=== PATIENT | female | born 1985 | race Caucasian/White ===

== ENCOUNTER 2023-07-19 12:55 | Outpatient (CLI) | payer OTHER, SELFPAY ==
--- NOTE | 2023-07-19 13:00 | US_ITS ---
Patient: OLGA MERCADO Facility:?[facility] RIS Patient ID:?[id number] Site Patient ID:?[id number]. Site :?1985 Study:?US-OB Pelvis TV dating/viability-07/19/2023 1:48:01 PM Ordering Physician:BONIFACIO Final Report: INDICATION: First trimester scan, establish dates. COMPARISON: None. TECHNIQUE: Real-time mejia-scale imaging of the pelvis was performed. FINDINGS: Sonographic imaging demonstrates a single living intrauterine gestation. The embryo demonstrates a regular cardiac rate measuring 157 beats per minute. The embryo`s crown-rump length measurement of 1.8 cm corresponds to a gestational age of 8 weeks 2 days with a sonographic due date of 02/26/2024. There is a normal-appearing yolk sac. There are no gross abnormalities noted within the embryo at this early state of development. The gestational sac has a normal appearance. There is a 1.1 x 0.7 x 0.8 cm perigestational hemorrhage. The amount of fluid within the sac appears appropriate for gestational age. The cervix is closed. The myometrium appears normal. The ovaries are of normal size. Corpus luteal cyst left ovary. There are no suspicious fluid collections noted in the cul-de-sac. IMPRESSION: Single living intrauterine with sonographic gestational age 8 weeks 2 days and sonographic due date of 02/26/2024. Right lower subchorionic hemorrhage measuring 1.1 x 0.7 x 0.8 cm. Dictated by Zhao Qureshi MD @ 07/20/2023 6:45:24 AM Signed by:?Zhao Qureshi MD @07/20/2023 6:45:24 AM (Electronic Signature)
== END 2023-07-19 12:56 | disposition home or self-care (01) ==
LOC: US 12:55
PROVIDERS: Visit Provider Advanced Practice Midwife
DX: Z34.91 Encounter for supervision of normal pregnancy, unspecified, first trimester (principal); O20.9 Hemorrhage in early pregnancy, unspecified; Z3A.08 8 weeks gestation of pregnancy
CPT/HCPCS: 76817; 84443; 86703; 86706; 86803; 86850; 86900; 86901; 87086; 87340

== ENCOUNTER 2023-07-19 15:04 | Outpatient (CLI) | payer OTHER, SELFPAY | END 2023-07-19 15:05 | disposition home or self-care (01) | LOC: NFLDREF 07-29 12:27 | PROVIDERS: Visit Provider Advanced Practice Midwife | DX: Z34.91 Encounter for supervision of normal pregnancy, unspecified, first trimester (principal) | CPT/HCPCS: 84443; 86592; 86703; 86704; 86706; 86762; 86787; 86803; 86850; 86900; 86901; 87086; 87340 ==

== ENCOUNTER 2023-09-09 14:27 | Outpatient (CLI) | payer OTHER, SELFPAY | END 2023-09-09 14:28 | disposition home or self-care (01) | LOC: NFLDREF 14:28 | PROVIDERS: Visit Provider Advanced Practice Midwife | DX: O09.522 Supervision of elderly multigravida, second trimester (principal); Z3A.16 16 weeks gestation of pregnancy | CPT/HCPCS: 81511 ==

== ENCOUNTER 2023-11-24 08:21 | Outpatient (CLI) | payer OTHER, SELFPAY ==
--- OUTSIDE RECORDS SUMMARY | 2023-11-24 08:23 | XMS_ITS | Encounter Summary ---
Author Organization [facility] Address [address] [place] [address]. [place] [address] Care Team Providers Care Automation Control Technician Name Role Phone No Ref-Primary, Physician Primary Care Provider Encounter Details Date Type Department Care Team (Late st Contact Info) Description 09/09/2023 Medical Correspondence [facility] Info Mgmt [facility] [address] [place] [address] Scan, Non-Provider Social History Tobacco Use Types Packs/Day Years Used Date Smoking Tobacco: Never Assessed Sex and Gender Information Value Date Recorded Sex Assigned at Not on file Gender Identity Not on file Sexual Orientation Not on file documented as of this encounter Plan of Treatment Not on file documented as of this encounter Visit Diagnoses Not on filedocumented in this encounter Care Teams Automation Control Technician Relationship Specialty Start Date End Date No Ref-Primary, Physician PCP - General 09/12/23 documented as of this encounter
--- OUTSIDE RECORDS SUMMARY | 2023-11-24 08:23 | XMS_ITS | Encounter Summary ---
Author Organization [facility] Address [address] [place] [address]. [place] [address] Care Team Providers Care Secretary Board Of Commissioners Name Role Phone No Ref-Primary, Physician Primary Care Provider Reason for Referral * Diagnostic Imaging Ultrasound (Routine) - Pending Review Specialty Diagnoses / Procedures Referred By Froy t Referred To Contact Radiology. Diagnoses Encounter for ultrasound to check growth Procedures [facility] US Comprehensive Single F/U Valeria Nagel MD [address] [place] [address] Referral ID Status Reason Start Date Expiration Date V isits Requested Visits Authorized [id number] Pending Review 09/28/2023 09/27/2024 1 1 Reason for Visit * Reason Comments Genetic Counseling AMA Ultrasound L2-AMA Encounter Details Date Type Department Care Team (Late st Contact Info) Description 09/28/2023 2:45 PM CDT Office Visit [facility] [place] [address] [place] [address] Sourav Pandey CNM [facility] [address] [place] [address] Valeria Nagel MD [address] [place] [address] Encounter for ultrasound to check growth (Primary Dx); Multigravida of advanced maternal age in second trimester Social History Tobacco Use Types Packs/Day Years Used Date Smoking Tobacco: Never Assessed Adolescent Education Answer Date Record ed Getting School Help Needed Not on file 09/21 Estimated Date of Delivery Comme nts Yes 02/22/2024 Based on last me nstrual period of 05/18/2023 Sex and Gender Information Value Date Recorded Sex Assigned at Not on file Gender Identity Not on file Sexual Orientation Not on file documented as of this encounter Progress Notes * Valeria Nagel MD - 09/28/2023 2:45 PM CDT The patient was seen for an ultrasound in the Maternal- Medicine Center at the [facility] today. For a detailed report of the ultrasound examination, please see the ultrasound report which can be found under the imaging tab. If you have questions regarding today's evaluation or if we can be of further service, please contact the Maternal- Medicine Center. Valeria Nagel MD Material Reclaimer, ASSISTANT MERCHANDISE MANAGER Maternal- Medicine [phone] (Pager) documented in this encounter Plan of Treatment Not on file documented as of this encounter Results * MFM US Comprehensive Single F/U (10/24/2023 2:32 PM CDT) Anatomical Region Laterality Modality Ultrasound 10/24/2023 1:59 PM CDT Impressions 10/24/2023 2:56 PM CDT IMPRESSION ----- 1. Ulloa at 22w 5d gestational age. 2. None of the anomalies commonly detected by ultrasound were evident in the limited anatomic survey as described above. 3. Growth parameters and estimated weight were consistent with gestational age predicted by assigned ABBEY (EFW 16%). 4. The amniotic fluid volume appeared normal. Narrative 10/24/2023 2:56 PM CDT ?Comp Follow Up ----- Pat. Name: CRISTY MERCADO ? Study Date: ??10/24/2023 1:59pm Pat. NO: ??[id number] ?Referring ??MD: SOURAV PANDEY Site: ??[facility] ? Take Up Supervisor: Xin Zarate RDMS : ??1985 ?Age: ?? 37 ----- INDICATION ----- Reevaluate growth, EFW 10th percentile on previous ultrasound METHOD ----- Transabdominal ultrasound examination. View: Sufficient ----- [place] . Number of fetuses: 1 DATING ----- ? Date ?Details ?Gest. age ?ABBEY LMP ?05/18/2023 ?Cycle: regular cycle ?22 w + 5 d ? 02/22/2024 Prior assessment ? 07/19/2023 ? GA: 8 w + 2 d ?22 w + 1 d ? 02/26/2024 U/S ? 10/24/2023 ? based upon AC, BPD, Femur, HC ?22 w + 0 d ? 02/27/2024 Assigned dating ?Dating performed on 09/28/2023, based on the LMP ?22 w + 5 d ? 02/22/2024 GENERAL EVALUATION ----- Cardiac activity present. FHR 140 bpm. movements present. Presentation cephalic. Placenta Posterior. Umbilical cord 3 vessel cord. Amniotic fluid Amount of AF: normal. MVP 5.6 cm. BIOMETRY ----- Main Biometry: BPD ?53.7 ?mm ? 22w 2d ?Hadlock OFMoi ?68.3 ?mm ? 21w 2d ?Nicolaides HC ?194.8 ?mm ?21w 5d ?Hadlock Cerebellum tr ?23.6 ? mm ?21w 6d ?Nicolaides AC ?170.8 ?mm ?22w 0d ?22% ?Hadlock Femur ?37.9 ? mm ?22w 1d ?Hadlock Weight Calculation: EFW ? 472 ? g ? 16% ?Hadlock EFW (lb,oz) ? 1 lb 1 ?oz EFW by ?Hadlock ([id number]) Head / Face / Neck Biometry: Cotton Stripper ? 5.2 ? mm CM ?3.7 ? mm ANATOMY ----- The following structures appear normal: Head / Neck ? Cranium. Head size. Head shape. Lateral ventricles. Midline falx. Cavum septi pellucidi. Cerebellum. Cisterna magna. Thalami. Face ? Lips. Profile. Nose. Heart / Thorax ?4-chamber view. RVOT view. LVOT view. 7-rovycm-gtdfcyq view. ? Diaphragm. Abdomen ? Stomach. Kidneys. Bladder. Spine ?Thoracic spine. Lumbar spine. Sacral spine. The following structures were documented previously: Spine ?Cervical spine. Gender: female. MATERNAL STRUCTURES ----- Cervix ?Suboptimal ? Cervical length 44.5 mm Right Ovary ?Not examined Left Ovary ?Not examined RECOMMENDATION ----- Thank-you for referring your patient for ultrasound assessment. I discussed the findings on today's ultrasound with the patient. There has been excellent interval growth since her last ultrasound. Given that growth is at the 16%ile today, recommend repeat growth assessment in 4 weeks. Patient prefers to have this ultrasound be scheduled with her primary provider, however, if this is not possible we are happy to schedule this with our office as well. Return to primary provider for continued care. If you have questions regarding today's evaluation or if we can be of further service, please contact the Maternal- Medicine Center. anomalies may be present but not detected I spent a total of 10 minutes on the date of this encounter including preparing to see the patient (reviewing medical records/tests), in direct gzpt-qb-csnv contact with the patient during her visit with the majority spent counseling and discussing the plan of care and documenting the visit in the electronic medical record. Please see note for details. Procedure Note Zelda Raman MD - 10/24/2023 Comp Follow Up ----- Pat. Name: CRISTY MERCADO Study Date: 10/24/2023 1:59pm Pat. NO: [id number] Referring MD: SOURAV PANDEY Site: [facility] Take Up Supervisor: Xin Zarate RDMS : 1985 Age: 37 ----- INDICATION ----- Reevaluate growth, EFW 10th percentile on previous ultrasound METHOD ----- Transabdominal ultrasound examination. View: Sufficient ----- [place] . Number of fetuses: 1 DATING ----- DateDetailsGest. age ABBEY LMP 05/18/2023ycle: regular cycle22 w + 5 d 02/22/2024 Prior assessment 07/19/2023 GA: 8 w +2 d22 w + 1 d 02/26/2024 U/S 10/24/2023ased upon AC, BPD, Femur, HC22 w + 0 d 02/27/2024 Assigned dating Dating performed on 09/28/2023, based onthe LMP 22 w +5 d 02/22/2024 GENERAL EVALUATION ----- Cardiac activity present. FHR 140 bpm. movements present. Presentation cephalic. Placenta Posterior. Umbilical cord 3 vessel cord. Amniotic fluid Amount of AF: normal. MVP 5.6 cm. BIOMETRY ----- Main Biometry: BPD 53.7 mm22w 2d Hadlock OFD 68.3 mm21w 2d Nicolaides HC 194.8 mm21w 5d Hadlock Cerebellum tr 23.6 mm21w 6d Nicolaides AC 170.8 mm22w 0d 22% Hadlock Femur 37.9 mm22w 1d Hadlock Weight Calculation: EFW 472 g16% Hadlock EFW (lb,oz) 1 lb 1 oz EFW by Hadlock ([id number]) Head / Face / Neck Biometry: Cotton Stripper 5.2 mm CM 3.7 mm ANATOMY ----- The following structures appear normal: Head / Neck Cranium. Head size. Head shape.Lateral ventricles. Midline falx. Cavum septi pellucidi. Cerebellum.Cisterna magna. Thalami. Face Lips. Profile. Nose. Heart / Thorax 4-chamber view. RVOT view. LVOT view.6-ixkbet-fuosuqu view. Diaphragm. Abdomen Stomach. Kidneys. Bladder. Spine Thoracic spine. Lumbar spine.Sacral spine. The following structures were documented previously: Spine Cervical spine. Gender: female. MATERNAL STRUCTURES ----- Cervix Suboptimal Cervical length 44.5 mm Right Ovary Not examined Left Ovary Not examined RECOMMENDATION ----- Thank-you for referring your patient for ultrasound assessment. Idiscussed the findings on today's ultrasound with the patient. There has been excellent interval growth since her last ultrasound. Giventhat growth is at the 16%ile today, recommend repeat growthassessment in 4 weeks. Patient prefers to have this ultrasound be scheduled with her primaryprovider, however, if this is not possible we are happy to schedule thiswith our office as well. Return to primary provider for continued care. If you have questions regarding today's evaluation or if we can be offurther service, please contact the Maternal- Medicine Center. anomalies may be present but not detected I spent a total of 10 minutes on the date of this encounter includingpreparing to see the patient (reviewing medical records/tests), in nbodkynjkf-gy-bvus contact with the patient during her visit with the majority spent counseling and discussingthe plan of care and documenting the visit in the electronic medicalrecord. Please see note for details. IMPRESSION ----- 1. Ulloa at 22w 5d gestational age. 2. None of the anomalies commonly detected by ultrasound were evident inthe limited anatomic survey as described above. 3. Growth parameters and estimated weight were consistent withgestational age predicted by assigned ABBEY (EFW 16%). 4. The amniotic fluid volume appeared normal. Valeria Nagel MD [facility] ORDERABLE S documented in this encounter Visit Diagnoses Diagnosis Encounter for ultrasound to check growth- Primary Multigravida of advanced maternal age in second trimester Encounter for ultrasound to check growth documented in this encounter Care Teams Secretary Board Of Commissioners Relationship Specialty Start Date End Date No Ref-Primary, Physician PCP - General 09/12/23 documented as of this encounter
--- OUTSIDE RECORDS SUMMARY | 2023-11-24 08:23 | XMS_ITS | Clinical Summary ---
Author Organization [facility] Address [address] [place] [address] Care Team Providers Care Slimer Name Role Phone No Ref-Primary, Physician Primary Care Provider Valeria Nagel MD Unavailable [phone] Encounters Date Type Department Care Team Description 10/24/2023 2:45 PM CDT Office Visit [facility]aternal Medicine [place] [address] [place] [address] Valeria Nagel MD Bohren, Jessica, CNM Burn, Martina, MD related condition, antepartum (Primary Dx); Encounter for ultrasound to check growth 10/24/2023 1:55 PM CDT - 10/24/2023 11:59 PM CDT Hospital Encounter [facility] [address] [place] [address] Valeria Nagel MD Burn, Martina, MD Encounter for ultrasound to check growth Discharge Disposition: Home or Self Care 10/24/2023 Travel 09/28/2023 2:45 PM CDT Office Visit [facility] Maternal Medicine [facility] [address] [place] [address] Sourav Pandey CNM Sabol, Bethany, MD Encounter for ultrasound to check growth (Primary Dx); Multigravida of advanced maternal age in second trimester 09/28/2023 1:30 PM CDT Office Visit [facility] Maternal Medicine [facility] [address] [place] [address] Sourav Pandey CNM Sabol, Bethany, MD Volesky, Mariah, GC Multigravida of advanced maternal age in second trimester (Primary Dx); related condition, antepartum 09/28/2023 1:25 PM CDT - 09/28/2023 11:59 PM CDT Hospital Encounter [facility] [place] [address] [facility] [address] [place] [address] Sourav Pandey CNM Sabol, Bethany, MD related condition, antepartum Discharge Disposition: Home or Self Care 09/28/2023 Travel 09/21/2023 PRE VISIT [facility] [place] [address] [facility] [address] [place] [id number] Elizabeth Harman RN Ultrasound (L2: AMA); Genetic Counseling (AMA) 09/12/2023 Transcribe Orders [facility] [place] [address] [facility] [address] [place] [address] Sourav Pandey CNM related condition, antepartum (Primary Dx) 09/09/2023 Medical Correspondence [facility] Info Mgmt [facility] [address] [place] [place] [address] Scan, Non-Provider from Last 3 Months Social History Tobacco Use Types Packs/Day Years [...] on file Sexual Orientation Not on file Plan of Treatment Health Maintenance Due Date Last Done Comments ADVANCE CARE PLANNING 1987 ANNUAL REVIEW OF HM ORDERS 1987 GLUCOSE 1987 HIV SCREENING 10/29/2002 HEPATITIS C SCREENING 10/29/2005 HEPATITIS B IMMUNIZATION (2 of 3 - 19+ 3-dose series) 08/26/2014 07/29/2014, 07/24/2014 COVID-19 Vaccine (3 season) 2023 03/24/2022, 03/03/2022 PHQ-2 (once per calendar year) 2023 MATERNAL SCREENING DISCUSSION 07/27/2023 YEARLY PREVENTIVE VISIT 09/23/2023 09/22/2022 OBGCT (OB) 11/02/2023 INFLUENZA VACCINE (#1) 2024 , 04/19/2022, 03/05/2020, Additional history exists RSV VACCINE ( & 60+) (1 - Risk 1-dose series) 01/08/2024 PAP 05/25/2026 05/25/2023 DTAP/TDAP/TD IMMUNIZATION (4 - Td or Tdap) 08/28/2030 08/28/2020, 12/17/2009, 09/01/1999 HPV IMMUNIZATION Completed 05/06/2011, , 07/17/2010 IPV IMMUNIZATION Aged Out No longer e ligible based on patient's age to complete this topic MENINGITIS IMMUNIZATION Aged Out No l onger eligible based on patient's age to complete this topic Pneumococcal Vaccine: Pediatrics (0 to 5 Years) and At-Risk Patients (6 to 64 Years) Aged Out No longer eligible based on patient's age to complete this topic RSV MONOCLONAL ANTIBODY Aged Out No l onger eligible based on patient's age to complete this topic Procedures Procedure Name Priority Date/Time Associated Diagnosis Comments [facility] US COMPREHENSIVE SINGLE F/U Routine 10/24/2023 2:32 PM CDT Encounter for ultrasound to check growth [facility] US COMPREHENSIVE SINGLE Routine 09/28/2023 3:02 PM CDT related condition, antepartum from Last 3 Months Results * [facility] US Comprehensive Single F/U (10/24/2023 2:32 PM CDT) Anatomical Region Laterality Modality Ultrasound 10/24/2023 1:59 PM CDT Impressions 10/24/2023 2:56 PM CDT IMPRESSION ----- 1. Ulola at 22w 5d gestational age. 2. None [...] ? Study Date: ??10/24/2023 1:59pm Pat. NO: ??[id number] ?Referring ??MD: SOURAV PANDEY Site: ??[facility] ? [address] Supervisor: Xin Zarate RDMS : ??1985 ?Age: [...] BPD ?53.7 ?mm ? 22w 2d ?Hadlock OFD ?68.3 ?mm ? 21w 2d ?Nicolaides HC ?194.8 ?mm ?21w 5d ?Hadlock Cerebellum tr ?23.6 ? mm ?21w 6d ?Nicolaides AC ?170.8 ?mm ?22w 0d ?22% ?Hadlock Femur ?37.9 ? mm ?22w 1d ?Hadlock Weight Calculation: EFW ? 472 ? g ? 16% ?Hadlock EFW (lb,oz) ? 1 lb 1 ?oz EFW by ?Hadlock ([id number]) Head / Face / Neck Biometry: Aviation Medicine Specialist ? 5.2 ? mm CM ?3.7 ? mm ANATOMY ----- The following structures appear normal: Head / Neck ? Cranium. Head size. Head shape. Lateral ventricles. Midline falx. Cavum septi pellucidi. Cerebellum. Cisterna magna. Thalami. Face ? Lips. Profile. Nose. Heart / Thorax ?4-chamber view. RVOT view. LVOT view. 4-irrxrg-nkgctwc view. ? Diaphragm. Abdomen ? Stomach. Kidneys. [...] the patient (reviewing medical records/tests), in direct ihza-zx-ihyg contact with the patient during her visit with the majority spent counseling and discussing the plan of care and documenting the visit in the electronic medical record. Please see note for details. Procedure Note Zelda Raman MD - 10/24/2023 Comp Follow Up ----- Pat. Name: CRISTY MERCADO Study Date: 10/24/2023 1:59pm Pat. NO: [id number] Referring MD: SOURAV PANDEY Site: [facility] [address] Supervisor: Xin Zarate RDMS : 1985 Age: 37 ----- INDICATION ----- Reevaluate growth, EFW 10th percentile on previous ultrasound METHOD ----- Transabdominal ultrasound examination. View: Sufficient ----- [place] . Number of fetuses: 1 DATING ----- DateDetailsGest. age ABBEY LMP 4Cycle: regular cycle22 w + 5 d 02/22/2024 Prior assessment 07/19/2023 GA: 8 w +2 d22 w + 1 d 02/26/2024 U/S 4based upon AC, BPD, Femur, HC22 w + [...] 1 lb 1 oz EFW by Hadlock ([id number]) Head / Face / Neck Biometry: Aviation Medicine Specialist 5.2 mm CM 3.7 mm ANATOMY ----- The following structures appear normal: Head / Neck Cranium. Head size. Head shape.Lateral ventricles. Midline falx. Cavum septi pellucidi. Cerebellum.Cisterna magna. Thalami. Face Lips. Profile. Nose. Heart / Thorax 4-chamber view. RVOT view. LVOT view.6-zsuaam-fisffro view. Diaphragm. Abdomen Stomach. Kidneys. Bladder. Spine [...] see the patient (reviewing medical records/tests), in sozcbdesgl-xd-yvup contact with the patient during her visit [...] fluid volume appeared normal. Valeria Nagel MD [facility] US ORDERABLE S [facility] US Comprehensive Single (09/28/2023 3:02 PM CDT) Anatomical Region Laterality Modality Ultrasound 09/28/2023 1:56 PM CDT Impressions 09/28/2023 3:51 PM CDT IMPRESSION ----- 1. Ulloa at 19w 0d gestational age. 2. No anomalies commonly detected by ultrasound were identified in the detailed anatomic survey within the limits of ultrasound. 3. Growth parameters and estimated weight were at the 10th% for gestational age predicted by assigned ABBEY. 4. The amniotic fluid volume appeared normal. 5. On transabdominal imaging the cervix appeared long and closed. Narrative 09/28/2023 3:51 PM CDT ?Comprehensive ----- Pat. Name: CRISTY MERCADO ? Study Date: ??09/28/2023 1:56pm Pat. NO: ??[id number] ?Referring ??MD: SOURAV PANDEY Site: ??[facility] ? Street Supervisor: Irma Scott [facility] : ??1985 ?Age: ?? 37 ----- INDICATION ----- Advanced Maternal Age METHOD ----- Transabdominal ultrasound examination. View: Sufficient ----- [place] . Number of fetuses: 1 DATING ----- ? Date ?Details ?Gest. age ?ABBEY LMP ?05/18/2023 ?Cycle: regular cycle ?19 w + 0 d ? 02/22/2024 Prior assessment ? 07/19/2023 ? GA: 8 w + 2 d ?18 w + 3 d ? 02/26/2024 U/S ? 09/28/2023 ? based upon AC, BPD, Femur, HC ?18 w + 2 d ? 02/27/2024 Assigned dating ?Dating performed on 09/28/2023, based on the LMP ?19 w + 0 d ? 02/22/2024 GENERAL EVALUATION ----- Cardiac activity present. FHR 140 bpm. movements present. Presentation cephalic. Placenta posterior, no previa > 2 cm from internal os . Umbilical cord Cord vessels: 3 vessel cord. Insertion site: normal insertion. Amniotic fluid Amount of AF: normal. MVP 4.6 cm. BIOMETRY ----- Main Biometry: BPD ?40.5 ?mm ? 18w 2d ?Yandel NAQVI ?55.4 ?mm ? 18w 2d ?Nicolaides HC ?153.6 ?mm ?18w 2d ?Hadlock Cerebellum tr ?19.2 ? mm ?18w 4d ?Nicolaides AC ?125.4 ?mm ?18w 1d ?20% ?Hadlock Femur ?26.6 ? mm ?18w 1d ?Hadlock Humerus ?25.3 ?mm ? 18w 0d ?Katelin Weight Calculation: EFW ? 226 ? g ? 10% ?Hadlock EFW (lb,oz) ? 0 lb 8 ?oz EFW by ?Hadlock ([id number]-FL) Head / Face / Neck Biometry: Aviation Medicine Specialist ? 5.1 ? mm CM ?3.3 ? mm Nasal bone ? 6.2 ? mm Nuchal fold ? 3.0 ? mm ANATOMY ----- The following structures appear normal: Head / Neck ? Cranium. Head size. Head shape. Lateral ventricles. Choroid plexus. Midline falx. Cavum septi pellucidi. Cerebellum. Cisterna magna. ? Parenchyma. Thalami. Vermis. ? Neck. Nuchal fold. Face ? Lips. Profile. Nose. Maxilla. Mandible. Orbits. Lens. Heart / Thorax ?4-chamber view. RVOT view. LVOT view. Situs. Aortic arch view. Bicaval view. Ductal arch view. Superior vena cava. Inferior vena cava. 3-vessel ? view. 4-iabmht-bfylqmd view. Cardiac position. Cardiac size. Cardiac rhythm. ? Right lung. Left lung. Diaphragm. Abdomen ? Abdominal wall. Cord insertion. Stomach. Kidneys. Bladder. Liver. Bowel. Genitals. Spine ?Cervical spine. Thoracic spine. Lumbar spine. Sacral spine. Extremities / Skeleton ?Right arm. Right hand. Left arm. Left hand. Right leg. Right foot. Left leg. Left foot. Gender: female. MATERNAL STRUCTURES ----- Cervix ?Visualized ? Appearance: Appears Closed ? Approach - Transabdominal: Cervical length 46.3 mm Right Ovary ?Visualized Left Ovary ?Visualized RECOMMENDATION ----- Thank-you for referring your patient for a comprehensive ultrasound. I discussed the findings on today's ultrasound with the patient. We reviewed that we consider a to be affected by growth restriction (FGR) when the overall EFW is <10th% or if the abdominal circumference (AC) is < 10th% as they have been found to be equally predictive of SGA. We reviewed that with an EFW at the 10th% is still technically normal growth but is a reason for repeat evaluation to ensure growth continues to be normal. We discussed the potential etiologies of FGR including incorrect dating, constitutional, infectious etiologies (specifically CMV), genetic and structural abnormalities as well as placental and umbilical cord abnormalities. Her dating was reviewed (sure LMP c/w 8 week US). She had low risk cell free DNA for genetic screening. She is otherwise healthy and has no significant medical problems. I reviewed the limitations of ultrasound both in detecting aneuploidy and structural abnormalities. Ultrasound can routinely detect 80-90% of structural abnormalities. Follow-up evaluation of growth has been scheduled with our office in 3 weeks. Return to primary provider for continued care. If you have questions regarding today's evaluation or if we can be of further service, please contact the [facility]. anomalies may be present but not detected I spent a total of 15 minutes on the date of this encounter including preparing to see the patient (reviewing medical records/tests), counseling and discussing the plan of care, documenting the visit in the electronic medical record, and communicating with other health critical care nurse specialist and/or care coordination. Please see note for details. Procedure Note Valeria Nagel MD - 09/28/2023 Comprehensive ----- Pat. Name: CRISTY MERCADO Study Date: 09/28/2023 1:56pm Pat. NO: [id number] Referring MD: SOURAV PANDEY Site: [facility] [address] Supervisor: Irma Scott RDMS : 1985 Age: 37 ----- INDICATION ----- Advanced Maternal Age METHOD ----- Transabdominal ultrasound examination. View: Sufficient ----- [place] . Number of fetuses: 1 DATING ----- DateDetailsGest. age ABBEY LMP 05/18/2023ycle: regular cycle19 w + 0 d 02/22/2024 Prior assessment 07/19/2023 GA: 8 w +2 d18 w + 3 d 02/26/2024 U/S 09/28/2023ased upon AC, BPD, Femur, HC18 w + 2 d 02/27/2024 Assigned dating Dating performed on 09/28/2023, based onthe LMP 19 w +0 d 02/22/2024 GENERAL EVALUATION ----- Cardiac activity present. FHR 140 bpm. movements present. Presentation cephalic. Placenta posterior, no previa > 2 cm from internal os . Umbilical cord Cord vessels: 3 vessel cord. Insertion site: normalinsertion. Amniotic fluid Amount of AF: normal. MVP 4.6 cm. BIOMETRY ----- Main Biometry: BPD 40.5 mm18w 2d Hadlock OFD 55.4 mm18w 2d Nicolaides HC 153.6 mm18w 2d Hadlock Cerebellum tr 19.2 mm18w 4d Nicolaides AC 125.4 mm18w 1d 20% Hadlock Femur 26.6 mm18w 1d Hadlock Humerus 25.3 mm18w 0d Katelin Weight Calculation: EFW 226 g10% Hadlock EFW (lb,oz) 0 lb 8 oz EFW by Hadlock ([id number]-FL) Head / Face / Neck Biometry: Aviation Medicine Specialist 5.1 mm CM 3.3 mm Nasal bone 6.2 mm Nuchal fold 3.0 mm ANATOMY ----- The following structures appear normal: Head / Neck Cranium. Head size. Head shape.Lateral ventricles. Choroid plexus. Midline falx. Cavum septi pellucidi.Cerebellum. Cisterna magna. Parenchyma. Thalami. Vermis. Neck. Nuchal fold. Face Lips. Profile. Nose. Maxilla.Mandible. Orbits. Lens. Heart / Thorax 4-chamber view. RVOT view. LVOT view.Situs. Aortic arch view. Bicaval view. Ductal arch view. Superior venacava. Inferior vena cava. 3-vessel view. 7-vvdhjl-wdkxapj view.Cardiac position. Cardiac size. Cardiac rhythm. Right lung. Left lung.Diaphragm. Abdomen Abdominal wall. Cord insertion.Stomach. Kidneys. Bladder. Liver. Bowel. Genitals. Spine Cervical spine. Thoracic spine.Lumbar spine. Sacral spine. Extremities / Skeleton Right arm. Right hand. Left arm. [place]. Right leg. Right foot. Left leg. Left foot. Gender: female. MATERNAL STRUCTURES ----- Cervix Visualized Appearance: Appears Closed Approach - Transabdominal:Cervical length 46.3 mm Right Ovary Visualized Left Ovary Visualized RECOMMENDATION ----- Thank-you for referring your patient for a comprehensive ultrasound. I discussed the findings on today's ultrasound with the patient. Wereviewed that we consider a to be affected by growthrestriction (FGR) when the overall EFW is <10th% or if the abdominal circumference (AC) is < 10th% as theyhave been found to be equally predictive of SGA. We reviewed that with anEFW at the 10th% is still technically normal growth but is a reason for repeat evaluation toensure growth continues to be normal. We discussed the potentialetiologies of FGR including incorrect dating, constitutional, infectious etiologies (specificallyCMV), genetic and structural abnormalities as well as placental andumbilical cord abnormalities. Her dating was reviewed (sure LMP c/w 8 week US). She had low risk cell freefetal DNA for genetic screening. She is otherwise healthy and has nosignificant medical problems. I reviewed the limitations of ultrasound both in detecting aneuploidy andstructural abnormalities. Ultrasound can routinely detect 80-90% ofstructural abnormalities. Follow-up evaluation of growth has been scheduled with our office in3 weeks. Return to primary provider for continued care. If you have questions regarding today's evaluation or if we can be offurther service, please contact the [facility]. anomalies may be present but not detected I spent a total of 15 minutes on the date of this encounter includingpreparing to see the patient (reviewing medical records/tests), counselingand discussing the plan of care, documenting the visit in the electronic medical record, andcommunicating with other health critical care nurse specialist and/or carecoordination. Please see note for details. IMPRESSION ----- 1. [place] at 19w 0d gestational age. 2. No anomalies commonly detected by ultrasound were identified inthe detailed anatomic survey within the limits of prenatalultrasound. 3. Growth parameters and estimated weight were at the 10th% forgestational age predicted by assigned ABBEY. 4. The amniotic fluid volume appeared normal. 5. On transabdominal imaging the cervix appeared long and closed. Sourav Pandey CN IMG [facility] US ORDERABLE S from Last 3 Months Care Teams [place]er Relationship Specialty Start Date End Date No Ref-Primary, Physician PCP - General 09/12/23 Valeria Nagel MD [address] [place] [address] Assigned OBGYN Provider 10/30/23
--- OUTSIDE RECORDS SUMMARY | 2023-11-24 08:23 | XMS_ITS | Encounter Summary ---
Author Organization [facility] Address [address] [place] [address] Care Team Providers Care Body Former Name Role Phone No Ref-Primary, Physician Primary Care Provider Encounter Details Date Type Department Care Team (Latest Contact Info) Description 10/24/2023 Travel Social History Tobacco Use Types Packs/Day Years [...] on filedocumented in this encounter Care Teams Body Former Relationship Specialty Start Date End Date No Ref-Primary, Physician PCP - General 09/12/23 documented as of this encounter
--- OUTSIDE RECORDS SUMMARY | 2023-11-24 08:23 | XMS_ITS | Encounter Summary ---
Author Organization [place] Address [address] [place] [address] Care Team Providers Care Patrol Man Name Role Phone No Ref-Primary, Physician Primary Care Provider Reason for Visit * Reason Comments Genetic Counseling * Consultation (Routine: Next available opening) - Pending Review Specialty Diagnoses / Procedures Referred By Froy godwin Referred To Contact Diagnoses related condition, antepartum Karen Pandey CNM [facility] [address] [place] [address] Referral ID Status Reason Start Date Expiration Date V isits Requested Visits Authorized [id number] Pending Review 09/12/2023 09/11/2024 1 1 Encounter Details Date Type Department Care Team (Late st Contact Info) Description 09/28/2023 1:30 PM CDT Office Visit [facility] [place] [address] [place] [phone] Karen Pandey [facility] [address] [place] [address] Valeria Nagel MD [address] [place] [address] Jana Saldaña GC MATERNAL MEDICINE [address] [place] [id number] Multigravida of advanced maternal age in second trimester (Primary Dx); related condition, antepartum Social History Tobacco Use Types Packs/Day Years [...] as of this encounter Progress Notes * Jana Saldaña GC - 09/28/2023 1:30 PM CDT [facility] Genetic Counseling Consult Patient: Cristy Gutierrezeugenio Preferred Name: Cristy Date of : 1985 Date of Service: 09/28/23 Cristy was seen at the [facility] for genetic consultation. The indication for genetic counseling is advanced maternal age. The patient was accompanied to this visit by their partner, Kimo. The session was conducted in Bulgarian. IMPRESSION/ PLAN 1. Cristy had genetic screening earlier in this . Their non-invasive test was screen negative or low risk for screened conditions 2. During today's [facility] visit, Cristy had a genetic counseling session only. Cristy has already had genetic testing in this . Additional screening and diagnostic testing was discussed for the gestational age and declined. 3. Since the patient chose aneuploidy screening via NIPT, quad screen is NOT recommended in the second trimester. If the patient desires screening for open neural tube defects, maternal serum AFP only is recommended, ideally between 16- 18 weeks gestation. 4. Cristy had a level II comprehensive anatomy ultrasound today. Please see the ultrasound report for further details. 5. Further recommendation include a follow-up ultrasound with [facility]. The upcoming ultrasound has beenscheduled for 10/24/2023. HISTORY /Parity: Cristy's history is significant for: carried to term with their healthy, almost 3 year old daughter CURRENT Current Age: [age] year old Age at Delivery: 38 year old ABBEY: 02/22/2024, by Last Menstrual Period Gestational Age: 19w0d This is a single gestation. This was conceived spontaneously. MEDICAL HISTORY Cristy???s reported medical history is not expected to impact management or risks to fetaldevelopment. FAMILY HISTORY A three-generation pedigree was obtained today and is scanned under the Media tab in [employer]. The family history was reported by Cristy and their partner. The following significant findings were reported today: Cristy's partner, Kimo, is currently 39 years old and healthy. Cristy reports that she had two paternal aunts who from myotonic dystrophy (type unknown). Cristy reports that symptom onset was roughly in their 50s. Cristy knows that a daughter of one of the affected aunts underwent genetic testing for this condition, however, Cristy does not know what the result was. Cristy is not sure if either of her paternal grandparents expressed symptoms of myotonic dystrophy before passing. Cristy's father at age 50 from AIDS, therefore it is possible he also had the condition, but before symptoms onset. Myotonic dystrophy is an inherited condition characterized by progressive muscular weakness. Typically people with the condition have difficulties with myotonia (prolonges muscle contraction) and relaxing their muscles. Other features include cataracts and cardiac conduction defects. There are two types of myotonic dystrophy. Type 1 is more significant and weakness is associated with distal muscles while type 2 is more mild and associated with proximal muscles. The two types are caused by mutations in different genes as well. Both condition are inherited in an autosomal dominant pattern, however, for type 1 anticipation occurs which means due to an expansion mutation, each generation of affected individuals is affected at an earlier age, especially when an affected mother passes it to their child. For example, a grandmother can have onset in the 60s, her daughter in her 30s, and her granddaughter congenitally at . The same anticipation is not seen when the mutation is inherited from a father. Cristy was encouraged to follow-up with her cousin who did genetic testing for the condition, as that genetic testing report (positive or negative) could be helpful in guiding testing for[place], if she chooses. We discussed that some individuals would want to know their risk of developing myotonic dystrophy in their lifetime, especially if age of onset could potentially be earlier fortheir children. Other people would prefer not to test and wait to see if symptoms onset. I discussed with Cristy and Kimo that if Cristy would want to pursue testing, a copy of her cousin's genetic testing report would be helpful in guiding that testing, and that I would be able to assist with the referral to adult genetics for that testing. Cristy was provided my contact information and encouraged to contact me with questions or if she would like a referral placed. Kimo reports that his mother was diagnosed with tyroid cancer (type unknown) in her mid 30s and breast cancer at age 50s. Kimo's maternal aunt has a history of cancer (type unknown), however, it was later onset. We briefly discussed the family history of cancer. Cancer most often occurs by chance, however some families seem to develop cancer more frequently than expected. Everyone has a risk to develop cancer, but individuals may be at an increased risk to develop cancer based on their family history. We discussed that certain types of early onset thyroid cancer or breast cancer under the ageof 50 can be associated with inherited cancer predisposition syndromes. Genetic counseling is available for cancer syndromes. Cancer family history, even without genetic testing, can change cancer screening recommendations for family members and aid in insurance coverage for access to them as well.The most informative individuals to complete cancer genetic counseling and genetic testing are those with a personal history of cancer or those closely related to the affected individuals. We reviewed that if the family wants more information they can contact the [facility] Management Program ( ). Physicians can also make referrals at [email or web address] or, if within the [facility] system, through [facility] referral for Cancer Risk Mgmt/Cancer Genetic Counseling. Information regarding the [facility] Cancer RiskManagement program was provided to Kimo to share with his mother. We discussed that his mother would be the ideal person for cancer genetic counseling/testing and if there is a genetic predispositionof cancer discovered, family members could pursue testing, as it could change cancer screening recommendations for them. Otherwise, the reported family history is unremarkable for multiple miscarriages, stillbirths, defects, intellectual disabilities, known genetic conditions, and consanguinity. RISK ASSESSMENT FOR INHERITED CONDITIONS AND CARRIER SCREENING OPTIONS Expanded carrier screening is available to screen for autosomal recessive conditions and X-linked conditions in a large list of genes. Carrier screening does not test the but gives a risk assessment for the and future pregnancies to have the condition. Expanded carrier screeningis designed to identify carrier status for conditions that are primarily childhood or adolescent onset. Expanded carrier screening does not evaluate for adult-onset conditions such as hereditary cancer syndromes, dementia/ Alzheimer's disease, or cardiovascular disease risk factors. Additionally, expanded carrier screening is not comprehensive for all known genetic diseases or inherited conditions. Carrier screening does not test for all genetic and health conditions or risk factors. Autosomal recessive conditions happen when a mutation has been inherited from the egg and sperm andinclude conditions like cystic fibrosis, thalassemia, hearing loss, spinal muscular atrophy, and more. We reviewed that when both biological parents carry a harmful genetic change in a gene associated with autosomal recessive inheritance, each of their pregnancies has a 1 in 4 (25%) chance to be affected by that condition. X-linked conditions happen when a mutation has been inherited from the eggand include conditions like fragile X syndrome.With x-linked conditions, the specific risk generally depends on the chromosomal sex of the fetus, with XY individuals (generally male) being most severely affected. [place] screening was reviewed. About [place] Screening The patient does have a family family of a genetic condition. Cristy reports that she had two paternal aunts, both of which from myotonic dystrophy (type unknown). Please see the family history section for more details discussed on this topic. The patient has not had carrier screening previously. The patient declined the carrier screening options. They are aware the option will remain, and theycan contact us if they would like to pursue screening. See below for the more detailed information we dicussed. Carrier screening does not test the but gives a risk assessment for the and future pregnancies to have the condition There are different size panels or list of conditions for carrier screening. Some conditions cause health problems for carriers. We discussed that in the event of an incidentalfinding, further evaluation regarding screening or further testing may be recommended. Carrier screening does not test for all genetic and health conditions or risk factors The results typically take 2-3 weeks. If an individual is a carrier, family members could be as well. RISK ASSESSMENT FOR CHROMOSOME CONDITIONS We explained that the risk for chromosome abnormalities increases with maternal age. We discussed specific features of common chromosome abnormalities, including trisomy 21 (Down syndrome), trisomy 13, trisomy 18, and sex chromosome trisomies. At age 38 at delivery, the risk to have a baby with Down syndrome is 1 in 294. At age 38 at delivery, the risk to have a baby with any chromosome abnormality is 1 in 163. Cristy had genetic screening earlier in this . Their non-invasive test was screen negative or low risk for screened conditions Non-invasive testing (NIPT) results Maternal plasma cell-free DNA testing Screens for trisomy 21, trisomy 13, trisomy 18, and sex chromosome aneuploidy Cristy had a NIPT test earlier in ; we reviewed the results today, which are low risk. The NIPT did include sex chromosome aneuploidies and the result was low risk. The predicted sex is XX, which is typically female. Given the accuracy of this test, these results greatly decrease the chance for certain chromosome abnormalities We discussed the limitations of normal NIPT results GENETIC TESTING OPTIONS Genetic testing during a includes screening and diagnostic procedures. Screening tests are non-invasive which means no risk to the and includes ultrasounds and blood work. The benefits and limitations of screening were reviewed. Screening tests provide a risk assessment (chance) specific to the for certain chromosome abnormalities but cannot definitively diagnose or exclude a chromosome abnormality. Follow-up genetic counseling and consideration of diagnostic testing is recommended with any abnormal screening result. Diagnostic testing during a is more certain and can test for more conditions. However, the tests do have a risk of miscarriage that requires careful consideration. These tests can detect chromosome ab normalities with greater than 99% certainty. Results can be compromised by maternal cell contamination or mosaicism and are limited by the resolution of current genetic testing technology. There is no screening or diagnostic test that detects all forms of defects or intellectual disability. We discussed the following screening options: Non-invasive testing (NIPT) Also called cell-free DNA screening because it detects chromosomes from the placenta in the person's blood Can be done any time after 10 weeks gestation Standard recommendation for NIPT screens for trisomy 21, trisomy 18, trisomy 13, with the option ofadding sex chromosome aneuploidies, without or without predicted sex Cannot screen for open neural tube defects, maternal serum AFP after 15 weeks is recommended New NIPT options include screening for other trisomies, microdeletion syndromes, and in some cases blood antigens. Guidelines do not recommend these conditions are included in standard screening. These options have limitations and should be discussed with a genetic counselor. However, current (2022) ACMG guidelines do recommend that screening for one microdeletion syndrome,called 22q11.2 deletion syndrome be offered to all patients. 22q11.2 deletion syndrome hasan estimated prevalence of 1 in 990 to 1 in 2148 (0.05-0.1%). Risk is not thought to increase with maternal age. Clinical features are variable but include congenital heart defects, cleft palate, developmental delays, immune system deficiencies, and hearing loss. Approximately 90% of cases are de lydia (a sporadic new change in a ). Cell-free DNA screening for 22q11.2 deletion syndrome isavailable with the inclusion of other microdeletion syndromes. There is less data about the performance of cell-free DNA screening for more rare microdeletions and the chance for false positives or negative may be increased. We discussed the limitations of cell-free DNA screening in detecting microdeletions and the possiblity of false positives and false negatives. Microdeletion screening was notincluded in the NIPT ordered by Cristy's primary OB provider. We discussed the following ultrasound options: Comprehensive level II ultrasound ( Anatomy Ultrasound) Ultrasound done between 18-20 weeks gestation Screens for major defects and markers for aneuploidy (like trisomy 21 and trisomy 18) Includes looking at the fetus/baby's growth, heart, organs (stomach, kidneys), placenta, and amniotic fluid We discussed the following diagnostic options: Amniocentesis Invasive diagnostic procedure done after 15 weeks gestation The procedure collects a small sample of amniotic fluid for the purpose of chromosomal testing and/or other genetic testing Diagnostic result; more than 99% sensitivity for chromosome abnormalities Testing for AFP in the amniotic fluid can test for open neural tube defects It was a pleasure to be involved with Cristy???s care. Hejb-hc-brct time of the meeting was 30 minutes. Jana Saladña GC, MS, [facility] Board Certified and [place] Licensed Genetic Counselor [facility] Office: [phone] [facility]: [phone] [facility] documented in this encounter Plan of Treatment Not on file documented as of this encounter Visit Diagnoses Diagnosis Multigravida of advanced maternal age in second trimester- Primary related condition, antepartum documented in this encounter Care Teams Patrol Man Relationship Specialty Start Date End Date No Ref-Primary, Physician PCP - General 09/12/23 documented as of this encounter
--- OUTSIDE RECORDS SUMMARY | 2023-11-24 08:23 | XMS_ITS | Encounter Summary ---
Author Organization [place] Address [address] [place] [address] Care Team Providers Care Wire Basket Maker Name Role Phone No Ref-Primary, Physician Primary Care Provider Reason for Referral * Diagnostic Imaging Ultrasound (Routine) - Pending Review Specialty Diagnoses / Procedures Referred By Froy t Referred To Contact Radiology. Diagnoses Encounter for ultrasound to check growth Procedures [facility] US Comprehensive Single F/U Valeria Nagel MD [address] [facility] [address] [place] [address] Referral ID Status Reason Start Date Expiration Date V isits Requested Visits Authorized [id number] Pending Review 09/28/2023 09/27/2024 1 1 Reason for Visit * Diagnostic Imaging Ultrasound (Routine) - Pending Review Specialty Diagnoses / Procedures Referred By Froy godwin Referred To Contact Radiology. Diagnoses Encounter for ultrasound to check growth Procedures [facility] US Comprehensive Single F/U Valeria Nagel MD [address] [place] [address] Referral ID Status Reason Start Date Expiration Date V isits Requested Visits Authorized [id number] Pending Review 09/28/2023 09/27/2024 1 1 Encounter Details Date Type Department Care Team (Latest Contact Info) Description 10/24/2023 1:55 PM CDT - 10/24/2023 11:59 PM CDT Hospital Encounter [facility] [address] [place] [address] Valeria Nagel MD [address] [place] [address] Zelda Raman MD [address] [place] [address] Encounter for ultrasound to check growth Discharge Disposition: Home or Self Care Social History Tobacco Use Types Packs/Day Years [...] on file documented as of this encounter Procedures Procedure Name Priority Date/Time Associated Diagnosis Comments [facility] US COMPREHENSIVE SINGLE F/U Routine 10/24/2023 2:32 PM CDT Encounter for ultrasound to check growth documented in this encounter Results * [facility] US Comprehensive Single F/U (10/24/2023 2:32 [...] ? Study Date: ??10/24/2023 1:59pm Pat. NO: ??[id number] ?Referring ??MD: SOURAV SIMMONS Site: ??[facility] ? Ad Operations Associate: Xin Zarate RDMS : ??1985 ?Age: ?? [...] Biometry: BPD ?53.7 ?mm ? 22w 2d ?Yandel NAQVI ?68.3 ?mm ? 21w 2d ?Nicolaides HC ?194.8 ?mm ?21w 5d ?Hadlock Cerebellum tr ?23.6 ? mm ?21w 6d ?Nicolaides AC ?170.8 ?mm ?22w 0d ?22% ?Hadlock Femur ?37.9 ? mm ?22w 1d ?Hadlock Weight Calculation: EFW ? 472 ? g ? 16% ?Hadlock EFW (lb,oz) ? 1 lb 1 ?oz EFW by ?Hadlock ([id number]) Head / Face / Neck Biometry: Garment Looper ? 5.2 ? mm CM ?3.7 ? mm ANATOMY ----- The following structures appear normal: Head / Neck ? Cranium. Head size. Head shape. Lateral ventricles. Midline falx. Cavum septi pellucidi. Cerebellum. Cisterna magna. Thalami. Face ? Lips. Profile. Nose. Heart / Thorax ?4-chamber view. RVOT view. LVOT view. 5-ndolow-bsodhce view. ? Diaphragm. Abdomen ? Stomach. Kidneys. [...] the patient (reviewing medical records/tests), in direct kcsq-nd-fmgh contact with the patient during her visit with the majority spent counseling and discussing the plan of care and documenting the visit in the electronic medical record. Please see note for details. Procedure Note Zelda Raman MD - 10/24/2023 Comp Follow Up ----- Pat. Name: CRISTY MERCADO Study Date: 10/24/2023 1:59pm Pat. NO: [id number] Referring MD: SOURAV SIMMONS Site: [facility] Ad Operations Associate: Xin Zarate RDMS : 1985 Age: 37 [...] 1 lb 1 oz EFW by Hadlock ([id number]) Head / Face / Neck Biometry: Garment Looper 5.2 mm CM 3.7 mm ANATOMY ----- The following structures appear normal: Head / Neck Cranium. Head size. Head shape.Lateral ventricles. Midline falx. Cavum septi pellucidi. Cerebellum.Cisterna magna. Thalami. Face Lips. Profile. Nose. Heart / Thorax 4-chamber view. RVOT view. LVOT view.9-kevcxc-gajsmcy view. Diaphragm. Abdomen Stomach. Kidneys. Bladder. Spine [...] see the patient (reviewing medical records/tests), in gsftzkcfls-yk-lrdv contact with the patient during her visit [...] fluid volume appeared normal. Valeria Nagel MD IM [facility] US ORDERABLE S documented in this encounter Visit Diagnoses Diagnosis Encounter for ultrasound to check growth documented in this encounter Care Teams Wire Basket Maker Relationship Specialty Start Date End Date No Ref-Primary, Physician PCP - General 09/12/23 documented as of this encounter
--- OUTSIDE RECORDS SUMMARY | 2023-11-24 08:23 | XMS_ITS | Encounter Summary ---
Author Organization [place] Address [address] [place] [address] Care Team Providers Care Electronic Imaging System Operator Name Role Phone No Ref-Primary, Physician Primary Care Provider Reason for Referral * Diagnostic Imaging Ultrasound (Routine) - Pending Review Specialty Diagnoses / Procedures Referred By Kathrynac t Referred To Contact Radiology. Diagnoses related condition, antepartum Procedures [facility] US Comprehensive Single Sourav Pandey CNM [facility] [address] [place] [address] Referral ID Status Reason Start Date Expiration Date V isits Requested Visits Authorized [id number] Pending Review 09/12/2023 09/11/2024 1 1 Reason for Visit * Diagnostic Imaging Ultrasound (Routine) - Pending Review Specialty Diagnoses / Procedures Referred By Froy godwin Referred To Contact Radiology. Diagnoses related condition, antepartum Procedures [facility] US Comprehensive Single Sourav Pandey CNM [facility] [address] [place] [address] Referral ID Status Reason Start Date Expiration Date V isits Requested Visits Authorized [id number] Pending Review 09/12/2023 09/11/2024 1 1 Encounter Details Date Type Department Care Team (Latest Contact Info) Description 09/28/2023 1:25 PM CDT - 09/28/2023 11:59 PM CDT Hospital Encounter [facility] Maternal Medicine [facility] [address] [place] [address] Sourav Pandey CNM [facility] [address] [place] [address] Valeria Nagel MD [address] [place] [address] related condition, antepartum Discharge Disposition: Home or Self Care Social [...] Procedure Name Priority Date/Time Associated Diagnosis Comments [facility] US COMPREHENSIVE SINGLE Routine 09/28/2023 3:02 PM CDT related condition, antepartum documented in this encounter Results * [facility] US Comprehensive Single (09/28/2023 3:02 PM CDT) [...] ? Study Date: ??09/28/2023 1:56pm Pat. NO: ??[id number] ?Referring ??MD: SOURAV PANDEY Site: ??[facility] ? Parts Identifier: Irma Scott RDMS : ??1985 ?Age: ?? 37 ----- [...] 0 lb 8 ?oz EFW by ?Hadlock ([id number]) Head / Face / Neck Biometry: Traffic Law Attorney ? 5.1 ? mm CM ?3.3 ? [...] cava. Inferior vena cava. 3-vessel ? view. 4-jxtgrq-iglapph view. Cardiac position. Cardiac size. Cardiac rhythm. [...] medical record, and communicating with other health resident caregiver and/or care coordination. Please see note for details. Procedure Note Valeria Nagel MD - 09/28/2023 Comprehensive ----- Pat. Name: CRISTY MERCADO Study Date: 09/28/2023 1:56pm Pat. NO: [id number] Referring MD: SOURAV PANDEY Site: [facility] Parts Identifier: Irma Scott RDMS : 1985 Age: 37 [...] 0 lb 8 oz EFW by Hadlock ([id number]) Head / Face / Neck Biometry: Traffic Law Attorney 5.1 mm CM 3.3 mm Nasal bone [...] Superior venacava. Inferior vena cava. 3-vessel view. 3-nfqfmo-fswhwre view.Cardiac position. Cardiac size. Cardiac rhythm. Right [...] electronic medical record, andcommunicating with other health resident caregiver and/or carecoordination. Please see note for details. [...] cervix appeared long and closed. Sourav Pandey CNRozina IMG [facility] US ORDERABLE S documented in this encounter Visit Diagnoses Diagnosis related condition, antepartum documented in this encounter Care Teams Electronic Imaging System Operator Relationship Specialty Start Date End Date No Ref-Primary, Physician PCP - General 09/12/23 documented as of this encounter
--- OUTSIDE RECORDS SUMMARY | 2023-11-24 08:23 | XMS_ITS | Encounter Summary ---
Author Organization [place] Address [facility] [place] [address] Care Team Providers Care Grass Farm Laborer Name Role Phone No Ref-Primary, Physician Primary Care Provider Reason for Visit * Reason Comments Ultrasound RL2- EFW 10% Encounter Details Date Type Department Care Team (Late st Contact Info) Description 10/24/2023 2:45 PM CDT Office Visit [facility] [place] [address] [place] [address] Valeria Nagel MD [address] [place] [address] Karen Pandey, [facility] [address] [place] [address] Zelda Raman MD [address] [place] [address] related condition, antepartum (Primary Dx); Encounter for ultrasound to check growth Social History Tobacco Use Types Packs/Day Years [...] as of this encounter Progress Notes * Zelda Raman MD - 10/24/2023 2:45 PM CDT Please see Imaging tab under Chart Review for details of today's visit. Zelda Raman documented in this encounter Nursing Notes * Nancy Barnard RN - 10/24/2023 2:45 PM CDT Patient reports positive movement, denies pain, denies contractions/pre- term labor, leaking of fluid, or bleeding. Patient denies headache, visual changes, nausea/vomiting, epigastric pain related to preeclampsia. Pt does c/o occasional palpitations; plans to update PCP at next visit. 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 Education provided to patient on RL2. SBAR given to RYAN HERNANDEZ, see their note in Epic. Nancy Barnard RN documented in this encounter Plan of Treatment Not on file documented as of this encounter Visit Diagnoses Diagnosis related condition, antepartum- Primary Encounter for ultrasound to check growth documented in this encounter Care Teams Grass Farm Laborer Relationship Specialty Start Date End Date No Ref-Primary, Physician PCP - General 09/12/23 documented as of this encounter
--- OUTSIDE RECORDS SUMMARY | 2023-11-24 08:23 | XMS_ITS | Encounter Summary ---
Author Organization [place] Address [address] [place] [address] Care Team Providers Care Cnp Name Role Phone No Ref-Primary, Physician Primary Care Provider Encounter Details Date Type Department Care Team (Latest Contact Info) Description 09/28/2023 Travel Social History Tobacco Use Types Packs/Day [...] on filedocumented in this encounter Care Teams Cnp Relationship Specialty Start Date End Date No Ref-Primary, Physician PCP - General 09/12/23 documented as of this encounter
--- OUTSIDE RECORDS SUMMARY | 2023-11-24 08:23 | XMS_ITS | Encounter Summary ---
Author Organization [place] Address [address] [place] [address] Care Team Providers Care Profile Saw Setup Operator Name Role Phone No Ref-Primary, Physician Primary Care Provider Reason for Referral * Diagnostic Imaging Ultrasound (Routine) - Pending Review Specialty Diagnoses / Procedures Referred By Contac t Referred To Contact Radiology. Diagnoses related condition, antepartum Procedures [facility] US Comprehensive [facility] Sourav Pandey CNM [facility] [address] [place] [address] Referral ID Status Reason Start Date Expiration Date V isits Requested Visits Authorized [id number] Pending Review 09/12/2023 09/11/2024 1 1 * Consultation (Routine: Next available opening) - Pending Review Specialty Diagnoses / Procedures Referred By Contac t Referred To Contact Diagnoses related condition, antepartum Sourav Pandey CNM [facility] [address] [place] [address] Referral ID Status Reason Start Date Expiration Date V isits Requested Visits Authorized [id number] Pending Review 09/12/2023 09/11/2024 1 1 Comments AMA * Consultation (Routine) - Pending Review Specialty Diagnoses / Procedures Referred By Contac t Referred To Contact Diagnoses related condition, antepartum Sourav Pandey CNM [facility] [address] [place] [address] [facility] [address] [place] [address] Referral ID Status Reason Start Date Expiration Date V isits Requested Visits Authorized [id number] Pending Review 09/12/2023 09/11/2024 1 1 Question Answer MFM Consultation (unrelated to Ultrasound findings) No Genetic Counseling Consultation: Yes fax [facility] Sourav Pandey [phone] Ultrasound Comprehensive US (>than 18 weeks GA) US PROC NONE Preferred Location: [facility] 02/22/2024 MF Issue Advanced Maternal Age *MUST request Genetic Counseling Comments There is no height or weight on file to calculate BMI. >> Patient may proceed with recommendations for further testing as directed by the Maternal Medicine Specialist >> >> If requesting Echo: [facility] will determine appropriate location for exam due to indication. Please be aware that coverage of these services is subject to the terms and limitations of your health insurance plan. Call member services at your health plan with any benefit or coverage questions. Encounter Details Date Type Department Care Team (Latest Contact Info) Description 09/12/[address] [facility] Maternal Medicine Center [place] [address] [address] [place] [phone] Sourav Pandey CNM [facility] [address] [place] [address] related condition, antepartum (Primary Dx) Social History Tobacco Use Types Packs/Day Years Used Date Smoking Tobacco: Never Assessed Sex and Gender Information Value Date Recorded Sex Assigned at Not on file Gender Identity Not on file Sexual Orientation Not on file documented as of this encounter Plan of Treatment Scheduled Referrals Name Type Priority Associated Diagnoses Orde r Schedule [facility] Med Ctr Referral - Referral Routine related condition, antepartum Expected: 09/21/2023 (Approximate), Expires: 03/10/[address] [facility] Genetic Counseling Referral Routine: Next available opening related condition, antepartum Expected: 09/21/2023 (Approximate), Expires: 09/11/2024 documented as of this encounter Results * [facility] US Comprehensive Single (09/28/2023 3:02 PM [...] ? Study Date: ??09/28/2023 1:56pm Pat. NO: ??[id number] ?Referring ??MD: SOURAV PANDEY Site: ??[facility] ? Bean Picker: Imra Scott RDMS : ??1985 ?Age: ?? 37 [...] Biometry: BPD ?40.5 ?mm ? 18w 2d ?Hadlock OFD ?55.4 ?mm ? 18w 2d ?Nicolaides HC ?153.6 ?mm ?18w 2d ?Hadlock Cerebellum tr ?19.2 ? mm ?18w 4d ?Nicolaides AC ?125.4 ?mm ?18w 1d ?20% ?Hadlock Femur ?26.6 ? mm ?18w 1d ?Hadlock Humerus ?25.3 ?mm ? 18w 0d ?Katelin Weight Calculation: EFW ? 226 ? g ? 10% ?Hadlock EFW (lb,oz) ? 0 lb 8 ?oz EFW by ?Hadlock ([id number]) Head / Face / Neck Biometry: Judicial Clerk ? 5.1 ? mm CM ?3.3 ? [...] cava. Inferior vena cava. 3-vessel ? view. 0-sytxbn-rfrwvcy view. Cardiac position. Cardiac size. Cardiac rhythm. [...] medical record, and communicating with other health manager medicare and/or care coordination. Please see note for details. Procedure Note Valeria Nagel MD - 09/28/2023 Comprehensive ----- Pat. Name: CRISTY MERCADO Study Date: 09/28/2023 1:56pm Pat. NO: [id number] Referring MD: SOURAV PANDEY Site: [facility] Bean Picker: Irma Scott RDMS : 1985 Age: 37 [...] (lb,oz) 0 lb 8 oz EFW by Yandel ([id number]) Head / Face / Neck Biometry: Judicial Clerk 5.1 mm CM 3.3 mm Nasal bone [...] Superior venacava. Inferior vena cava. 3-vessel view. 6-dstfsi-gfvltpq view.Cardiac position. Cardiac size. Cardiac rhythm. Right [...] electronic medical record, andcommunicating with other health manager medicare and/or carecoordination. Please see note for details. [...] cervix appeared long and closed. Sourav Pandey [facility] ORDERABLE S documented in this encounter Visit Diagnoses Diagnosis related condition, antepartum- Primary related condition, antepartum documented in this encounter Care Teams Profile Saw Setup Operator Relationship Specialty Start Date End Date No Ref-Primary, Physician PCP - General 09/12/23 documented as of this encounter
--- OUTSIDE RECORDS SUMMARY | 2023-11-24 08:23 | XMS_ITS | Encounter Summary ---
Author Organization [place] Address [address] [place] [address] Care Team Providers Care Corporate Controller Name Role Phone No Ref-Primary, Physician Primary Care Provider Reason for Visit * Reason Comments Ultrasound L2: AMA Genetic Counseling AMA Encounter Details Date Type Department Care Team (Late st Contact Info) Description 09/21/2023 PRE VISIT [facility] Maternal Medicine Center [place] [address] [place] [address] Elizabeth Harman RN Ultrasound (L2: AMA); Genetic Counseling (AMA) Social History Tobacco Use Types Packs/Day Years [...] on filedocumented in this encounter Care Teams Corporate Controller Relationship Specialty Start Date End Date No Ref-Primary, Physician PCP - General 09/12/23 documented as of this encounter
--- OUTSIDE RECORDS SUMMARY | 2023-11-24 08:23 | XMS_ITS | Referral Summary ---
Author Organization [facility] Address [address] [place] [address] Care Team Providers Care Sponge Maker Name Role Phone No Ref-Primary, Physician Primary Care Provider Valeria Nagel MD Unavailable [phone] Encounters Date Type Department Care Team Description 10/24/2023 Travel 10/24/2023 2:45 PM CDT Office Visit [facility] Medicine [facility] [address] [place] [address] Valeria Nagel MD Bohren, Jessica, CNM Burn, Martina, MD related condition, antepartum (Primary Dx); Encounter for ultrasound to check growth 10/24/2023 1:55 PM CDT - 10/24/2023 11:59 PM CDT Hospital Encounter [facility] Medicine [facility] [address] [place] [phone] Valeria Nagel MD Burn, Martina, MD Encounter for ultrasound to check growth Discharge Disposition: Home or Self Care 09/28/2023 Travel 09/28/2023 2:45 PM CDT Office Visit [facility] Medicine [facility] [address] [place] [phone] Sourav Pandey CNM Sabol, Bethany, MD Encounter for ultrasound to check growth (Primary Dx); Multigravida of advanced maternal age in second trimester 09/28/2023 1:25 PM CDT - 09/28/2023 11:59 PM CDT Hospital Encounter [facility] Medicine [place] [address] [place] [address] Sourav Pandey CNM Sabol, Bethany, MD related condition, antepartum Discharge Disposition: Home or Self Care 09/28/2023 1:30 PM CDT Office Visit [facility] Medicine [place] [address] [facility] [address] [place] [address] Sourav Pandey CNM Sabol, Bethany, MD Volesky, Mariah, GC Multigravida of advanced maternal age in second trimester (Primary Dx); related condition, antepartum 09/21/2023 PRE VISIT [facility] [place] [address] [facility] [address] [place] [address] Elizabeth Harman RN Ultrasound (L2: AMA); Genetic Counseling (AMA) 09/12/2023 Transcribe Orders [facility] Medicine [place] [address] [place] [address] Suorav Pandey CNM related condition, antepartum (Primary Dx) 09/09/2023 Medical Correspondence [facility] [address] [place] [address] Scan, Non-Provider from Last 3 Months [...] Orientation Not on file Plan of Treatment Not on file Procedures Procedure Name Priority Date/Time Associated Diagnosis Comments [facility] COMPREHENSIVE SINGLE F/U Routine 10/24/2023 2:32 PM CDT Encounter for ultrasound to check growth [facility] US COMPREHENSIVE SINGLE Routine 09/28/2023 3:02 PM CDT related condition, antepartum from Last 3 Months Results * [facility] US Comprehensive Single F/U (10/24/2023 2:32 [...] ? Study Date: ??10/24/2023 1:59pm Pat. NO: ??[id number] ?Referring ??: SOURAV PANDEY Site: ??[facility] ? Fuel Attendant: Xin Zarate RDMS : ??1985 ?Age: ?? [...] 1 lb 1 ?oz EFW by ?Hadlock ([id number]) Head / Face / Neck Biometry: Telegraph Service Clerk ? 5.2 ? mm CM ?3.7 ? mm ANATOMY ----- The following structures appear normal: Head / Neck ? Cranium. Head size. Head shape. Lateral ventricles. Midline falx. Cavum septi pellucidi. Cerebellum. Cisterna magna. Thalami. Face ? Lips. Profile. Nose. Heart / Thorax ?4-chamber view. RVOT view. LVOT view. 3-bodjnl-zabaaki view. ? Diaphragm. Abdomen ? Stomach. Kidneys. [...] the patient (reviewing medical records/tests), in direct dkci-kv-zvol contact with the patient during her visit with the majority spent counseling and discussing the plan of care and documenting the visit in the electronic medical record. Please see note for details. Procedure Note Zelda Raman MD - 10/24/2023 Comp Follow Up ----- Pat. Name: CRISTY MERCADO Study Date: 10/24/2023 1:59pm Pat. NO: [id number] Referring MD: SOURAV PANDEY Site: [facility] Fuel Attendant: Xin Zarate RDMS : 1985 Age: 37 [...] 1 lb 1 oz EFW by Hadlock (HLE-TS-YR-FL) Head / Face / Neck Biometry: Telegraph Service Clerk 5.2 mm CM 3.7 mm ANATOMY ----- The following structures appear normal: Head / Neck Cranium. Head size. Head shape.Lateral ventricles. Midline falx. Cavum septi pellucidi. Cerebellum.Cisterna magna. Thalami. Face Lips. Profile. Nose. Heart / Thorax 4-chamber view. RVOT view. LVOT view.4-xlcsnk-tgetkny view. Diaphragm. Abdomen Stomach. Kidneys. Bladder. Spine [...] see the patient (reviewing medical records/tests), in ypcsbebtil-qv-wcgf contact with the patient during her visit [...] fluid volume appeared normal. Valeria Nagel MD [facility] US ORDERABLE S [facility] US Comprehensive Single (09/28/2023 3:02 PM CDT) [...] ? Study Date: ??09/28/2023 1:56pm Pat. NO: ??[id number] ?Referring ??MD: SOURAV PANDEY Site: ??[facility] ? Fuel Attendant: Irma Scott RDMS : ??1985 ?Age: ?? [...] 0 lb 8 ?oz EFW by ?Hadlock (CFB-YR-FO-FL) Head / Face / Neck Biometry: Telegraph Service Clerk ? 5.1 ? mm CM ?3.3 [...] cava. Inferior vena cava. 3-vessel ? view. 3-uznpkq-wrrntyp view. Cardiac position. Cardiac size. Cardiac rhythm. [...] medical record, and communicating with other health live in caregiver and/or care coordination. Please see note for details. Procedure Note Valeria Nagel MD - 05/22/2024 Comprehensive ----- Pat. Name: CRISTY MERCADO Study Date: 09/28/2023 1:56pm Pat. NO: [id number] Referring MD: SOURAV PANDEY Site: [facility] Fuel Attendant: Irma Scott RDMS : 1985 Age: 37 [...] 0 lb 8 oz EFW by Hadlock (ZPM-[id number]-MJ-FL) Head / Face / Neck Biometry: Telegraph Service Clerk 5.1 mm CM 3.3 mm Nasal [...] Superior venacava. Inferior vena cava. 3-vessel view. 8-kwmidc-iztbmbd view.Cardiac position. Cardiac size. Cardiac rhythm. Right [...] electronic medical record, andcommunicating with other health live in caregiver and/or carecoordination. Please see note for [...] the cervix appeared long and closed. Sourav DUCKWORTHM IMG M US ORDERABLE S from Last 3 Months Care Teams Sponge Maker Relationship Specialty Start Date End Date No Ref-Primary, Physician PCP - General 09/12/23 Valeria Nagel MD [address] [facility] [address] [place] [address] Assigned OBGYN Provider 10/30/23
--- NOTE | 2023-11-24 08:45 | CRLHL7_ITS ---
For Patients: As a result of the Century Cures Act, medical imaging exams and procedure reports are released immediately into your electronic medical record. You may view this report before your referring provider. If you have questions, please contact your health care provider. INDICATION: follow up small for dates TECHNIQUE: Real time mejia scale imaging of the fetus was performed. COMPARISON: 07/19/2023 FINDINGS: Sonographic imaging demonstrates a single living intrauterine gestation. Fetus demonstrates a regular cardiac rate of 139 beats per minute. Fetus has a transverse position, head maternal right. The placenta lies right posterior. Amniotic fluid volume appears normal and there is a single deepest pocket of 6.0 cm. The estimated weight is 917gm which lies at the 12th %. BPD 18th percentile. HC 10th percentile. AC is 17th percentile. FL 13th percentile. The fetus was active. Absent breathing movements. There was normal flexion and extension of the trunk and extremities. IMPRESSION: Biophysical profile 10/14. Sonographic gestational age 26 weeks 3 days and sonographic due date 02/27/2024. Sonographic age 5 days behind the clinical age. Estimated weight 12th percentile. Abdominal circumference 17th percentile. Dictated by Zhao Qureshi MD @ 11/24/2023 10:51:15 AM (Electronically Signed)
== END 2023-11-24 08:22 | disposition home or self-care (01) ==
LOC: US 08:21
PROVIDERS: Visit Provider Advanced Practice Midwife
DX: O36.5920 Maternal care for other known or suspected poor fetal growth, second trimester, not applicable or unspecified (principal); Z3A.26 26 weeks gestation of pregnancy
CPT/HCPCS: 76816; 76819; 86592

== ENCOUNTER 2023-12-17 15:00 | Outpatient (CLI) | payer OTHER, SELFPAY ==
--- OUTSIDE RECORDS SUMMARY | 2023-12-17 15:02 | XMS_ITS | Referral Summary ---
Author Organization [facility] Address [address] [place] [address] Care Team Providers Care Internet Merchant Name Role Phone No Ref-Primary, Physician Primary Care Provider Valeria Nagel MD Unavailable [phone] Encounters Date Type Department Care Team Description 10/24/2023 Travel 10/24/2023 2:45 PM CDT Office Visit [facility] [address] [place] [address] Valeria Nagel MD Bohren, Jessica, CNM Burn, Martina, MD related condition, antepartum (Primary Dx); Encounter for ultrasound to check growth 10/24/2023 1:55 PM CDT - 10/24/2023 11:59 PM CDT Hospital Encounter [facility] [address] [place] [phone] Valeria Nagel MD Burn, Martina, MD Encounter for ultrasound to check growth Discharge Disposition: Home or Self Care 09/28/2023 Travel 09/28/2023 2:45 PM CDT Office Visit [facility] [address] [place] [phone] Sourav Pandey CNM Sabol, Bethany, MD Encounter for ultrasound to check growth (Primary Dx); Multigravida of advanced maternal age in second trimester 09/28/2023 1:25 PM CDT - 09/28/2023 11:59 PM CDT Hospital Encounter [facility] [address] [address] [place] [address] Sourav Pandey CNM Sabol, Bethany, MD related condition, antepartum Discharge Disposition: Home or Self Care 09/28/2023 1:30 PM CDT Office Visit [facility] [address] [facility] [address] [place] [address] Sourav Pandey CNM Sabol, Bethany, MD Volesky, Mariah, SULEMAN Multigravida of advanced maternal age in second trimester (Primary Dx); related condition, antepartum 09/21/2023 PRE VISIT [facility] [place] [address] [facility] [address] [place] [address] Elizabeth Harman RN Ultrasound (L2: AMA); Genetic Counseling (AMA) from Last 3 Months Social History Tobacco [...] Procedure Name Priority Date/Time Associated Diagnosis Comments [facility] US COMPREHENSIVE SINGLE F/U Routine 10/24/2023 2:32 PM CDT Encounter for ultrasound to check growth [facility] US COMPREHENSIVE SINGLE Routine 09/28/2023 3:02 PM CDT related condition, antepartum from Last 3 Months Results * [facility] US Comprehensive Single F/U (10/24/2023 2:32 [...] ? Study Date: ??10/24/2023 1:59pm Pat. NO: ??[id number] ?Referring ??: SOURAV PANDEY Site: ??[facility] ? Envelope Folding Machine Adjuster: Xin Zarate RDMS : ??1985 ?Age: ?? [...] 1 lb 1 ?oz EFW by ?Hadlock (XEQ-EH-WN-FL) Head / Face / Neck Biometry: Juice Scaleman ? 5.2 ? mm CM ?3.7 ? mm ANATOMY ----- The following structures appear normal: Head / Neck ? Cranium. Head size. Head shape. Lateral ventricles. Midline falx. Cavum septi pellucidi. Cerebellum. Cisterna magna. Thalami. Face ? Lips. Profile. Nose. Heart / Thorax ?4-chamber view. RVOT view. LVOT view. 9-fhidal-tdcgswj view. ? Diaphragm. Abdomen ? Stomach. Kidneys. [...] the patient (reviewing medical records/tests), in direct qqlr-kg-qcvh contact with the patient during her visit with the majority spent counseling and discussing the plan of care and documenting the visit in the electronic medical record. Please see note for details. Procedure Note Zelda Raman MD - 10/24/2023 Comp Follow Up ----- Pat. Name: CRISTY MERCADO Study Date: 10/24/2023 1:59pm Pat. NO: [id number] Referring MD: SOURAV PANDEY Site: [facility] Envelope Folding Machine Adjuster: Xin Zarate RDMS : 1985 Age: 37 [...] 1 lb 1 oz EFW by Hadlock (URY-MR-RB-FL) Head / Face / Neck Biometry: Juice Scaleman 5.2 mm CM 3.7 mm ANATOMY ----- The following structures appear normal: Head / Neck Cranium. Head size. Head shape.Lateral ventricles. Midline falx. Cavum septi pellucidi. Cerebellum.Cisterna magna. Thalami. Face Lips. Profile. Nose. Heart / Thorax 4-chamber view. RVOT view. LVOT view.8-yvnwhs-figymps view. Diaphragm. Abdomen Stomach. Kidneys. Bladder. Spine [...] today's evaluation or if we can be [facility], please contact the [facility]. anomalies may be present but not detected I spent a total of 10 minutes on the date of this encounter includingpreparing to see the patient (reviewing medical records/tests), in aoesshvkly-qo-wxic contact with the patient during her visit [...] fluid volume appeared normal. Valeria Nagel MD [facility] US ORDERABLE S * [facility] US Comprehensive Single (09/28/2023 3:02 PM [...] ? Study Date: ??09/28/2023 1:56pm Pat. NO: ??[id number] ?Referring ??MD: SOURAV PANDEY Site: ??[facility] ? Envelope Folding Machine Adjuster: Irma Scott RDMS : ??1985 ?Age: ?? [...] NAQVI ?55.4 ?mm ? 18w 2d ?Nicolaides ?153.6 ?mm ?18w 2d ?Hadlock Cerebellum tr ?19.2 ? mm ?18w 4d ?Nicolaides AC ?125.4 ?mm ?18w 1d ?20% ?Hadlock Femur ?26.6 ? mm ?18w 1d ?Hadlock Humerus ?25.3 ?mm ? 18w 0d ?Katelin Weight Calculation: EFW ? 226 ? g ? 10% ?Hadlock EFW (lb,oz) ? 0 lb 8 ?oz EFW by ?Hadlock (WQP-WK-LF-FL) Head / Face / Neck Biometry: Juice Scaleman ? 5.1 ? mm CM ?3.3 ? [...] cava. Inferior vena cava. 3-vessel ? view. 4-tezjfz-gxzpttr view. Cardiac position. Cardiac size. Cardiac rhythm. [...] medical record, and communicating with other health managed care coordinator and/or care coordination. Please see note for details. Procedure Note Valeria Nagel MD - 09/28/2023 Comprehensive ----- PatuCba Name: CRISTY MERCADO Study Date: 09/28/2023 1:56pm Pat. NO: [id number] Referring MD: SOURAV PANDEY Site: [facility] Envelope Folding Machine Adjuster: Irma Scott RDMS : 1985 Age: 37 [...] 0 lb 8 oz EFW by Hadlock ([id number]-[id number]-FL) Head / Face / Neck Biometry: Juice Scaleman 5.1 mm CM 3.3 mm Nasal bone [...] Superior venacava. Inferior vena cava. 3-vessel view. 1-kdnker-tohnzow view.Cardiac position. Cardiac size. Cardiac rhythm. Right [...] electronic medical record, andcommunicating with other health managed care coordinator and/or carecoordination. Please see note for details. [...] cervix appeared long and closed. Sourav Pandey [facility] US ORDERABLE S from Last 3 Months Care Teams Internet Merchant Relationship Specialty Start Date End Date No Ref-Primary, Physician PCP - General 09/12/23 Valeria Nagel MD [address] [facility] [address] [place] [address] Assigned OBGYN Provider 10/30/23
--- OUTSIDE RECORDS SUMMARY | 2023-12-17 15:02 | XMS_ITS | Encounter Summary ---
Author Organization [facility] Address [address] [place] [address] Care Team Providers Care Comic Artist Name Role Phone No Ref-Primary, Physician Primary [...] on filedocumented in this encounter Care Teams Comic Artist Relationship Specialty Start Date End Date No Ref-Primary, Physician PCP - General 09/12/23 documented as of this encounter
--- OUTSIDE RECORDS SUMMARY | 2023-12-17 15:02 | XMS_ITS | Encounter Summary ---
Author Organization [facility] Address [address] [place] [address] Care Team Providers Care Automation Engineering Manager Name Role Phone No Ref-Primary, Physician Primary Care Provider Reason for Visit * Reason Comments Genetic Counseling * Consultation (Routine: Next available opening) - Pending Review Specialty Diagnoses / Procedures Referred By Froy godwin Referred To Contact Diagnoses related condition, antepartum Karen Pandey CNM [facility] [address] [place] [address] Referral ID Status Reason Start Date Expiration Date V isits Requested Visits Authorized [id number] Pending Review 09/12/2023 09/11/2024 1 1 Encounter Details Date Type Department Care Team (Late st Contact Info) Description 09/28/2023 1:30 PM CDT Office Visit [facility] Maternal Medicine Center [place] [address] [facility] [address] [place] [phone] Karen Pandey [facility] [address] [place] [address] Valeria Nagel MD [address] [place] [address] Jana Saldaña GC MATERNAL MEDICINE [address] [place] [address] Multigravida of advanced maternal age in second [...] Saldaña GC - 09/28/2023 1:30 PM CDT [facility] Genetic Counseling Consult Patient: Cristy Gutierrezeugenio Preferred Name: Cristy Date of : 1985 Date of Service: 09/28/23 Cristy was seen at the [facility] for genetic consultation. The indication for genetic counseling is advanced maternal age. The patient was accompanied to this visit by their partner, Kimo. The session was conducted in [place]. IMPRESSION/ PLAN 1. Cristy had genetic screening earlier in this . Their non-invasive test was screen negative or low risk for screened conditions 2. During today's [facility] visit, Cristy had a genetic counseling session [...] Further recommendation include a follow-up ultrasound with [facility]. The upcoming ultrasound has beenscheduled for 10/24/2023. [...] is scanned under the Media tab in [facility]. The family history was reported by Cristy [...] wants more information they can contact the [facility] Cancer Risk Management Program ( ). Physicians can also make referrals at [email or web address] or, if within the [employer] system, through [facility] referral for Cancer Risk Mgmt/Cancer Genetic Counseling. Information regarding the [employer] Cancer RiskManagement program was provided to Kimo [...] individuals (generally male) being most severely affected. screening was reviewed. About [place] Screening The patient does have a family [...] pleasure to be involved with Cristy???s care. Uukp-yg-gdxp time of the meeting was 30 minutes. Jana Saldaña GC, MS, [facility] Board Certified and [place] Licensed Genetic Counselor [facility] Maternal Medicine Office: [phone] [facility]: [phone] [facility] documented in this encounter Plan of Treatment Not on file documented as of this encounter Visit Diagnoses Diagnosis Multigravida of advanced maternal age in second trimester- Primary related condition, antepartum documented in this encounter Care Teams Automation Engineering Manager Relationship Specialty Start Date End Date No Ref-Primary, Physician PCP - General 09/12/23 documented as of this encounter
--- OUTSIDE RECORDS SUMMARY | 2023-12-17 15:02 | XMS_ITS | Encounter Summary ---
Author Organization [facility] Address [address] [place] [address] Care Team Providers Care Rug Inspector Name Role Phone No Ref-Primary, Physician Primary Care Provider Reason for Referral * Diagnostic Imaging Ultrasound (Routine) - Pending Review Specialty Diagnoses / Procedures Referred By Contac t Referred To Contact Radiology. Diagnoses related condition, antepartum Procedures [facility] US Comprehensive [facility] Sourav Pandey CNM [facility] [address] [place] [address] Referral ID Status Reason Start Date Expiration Date V isits Requested Visits Authorized [id number] Pending Review 09/12/2023 09/11/2024 1 1 * Consultation (Routine: Next available opening) - Pending Review Specialty Diagnoses / Procedures Referred By Contac t Referred To Contact Diagnoses related condition, antepartum Sourav Pandey CNM [facility] [address] [place] [address] Referral ID Status Reason Start Date Expiration Date V isits Requested Visits Authorized [id number] Pending Review 09/12/2023 09/11/2024 1 1 Comments AMA * Consultation (Routine) - Pending Review Specialty Diagnoses / Procedures Referred By Contac t Referred To Contact Diagnoses related condition, antepartum oSurav Pandey CNM [facility] [address] [place] [address] [facility] [address] [place] [address] Referral ID Status Reason Start Date Expiration Date V isits Requested Visits Authorized [id number] Pending Review 09/12/2023 09/11/2024 1 1 Question Answer MFM Consultation (unrelated to Ultrasound findings) No Genetic Counseling Consultation: Yes fax [facility] Sourav Pandey [phone] Ultrasound Comprehensive US (>than 18 weeks GA) US PROC NONE Preferred Location: [facility] [place] [facility] 02/22/2024 MF Issue Advanced Maternal Age *MUST request Genetic Counseling Comments There is no height or weight on file to calculate BMI. >> Patient may proceed with recommendations for further testing as directed by the Maternal Medicine Specialist >> >> If requesting Echo: [facility] will determine appropriate location for exam due to indication. Please be aware that coverage of these services is subject to the terms and limitations of your health insurance plan. Call member services at your health plan with any benefit or coverage questions. Encounter Details Date Type Department Care Team (Latest Contact Info) Description 09/12/2023 Transcribe Orders [facility] M[facility] Medicine [facility] [place] [address] [facility] [address] [place] [phone] Sourav Pandey CNM [facility] [address] [place] [address] related condition, antepartum (Primary Dx) Social History [...] condition, antepartum Expected: 09/21/2023 (Approximate), Expires: 03/10/2024 [facility] Genetic Counseling Referral Routine: Next available opening related condition, antepartum Expected: 09/21/2023 (Approximate), Expires: 09/11/2024 documented as of this encounter Results * [facility] US Comprehensive Single (09/28/2023 3:02 PM [...] ? Study Date: ??09/28/2023 1:56pm Pat. NO: ??[id number] ?Referring ??MD: SOURAV PANDEY Site: ??[facility] ? Retread Supervisor: Irma Scott RDMS : ??1985 ?Age: ?? [...] 0 lb 8 ?oz EFW by ?Hadlock ([id number]-YE-[id number]-FL) Head / Face / Neck Biometry: Chairperson Anesthesiology ? 5.1 ? mm CM ?3.3 ? [...] cava. Inferior vena cava. 3-vessel ? view. 5-njdvky-afqjreh view. Cardiac position. Cardiac size. Cardiac rhythm. [...] medical record, and communicating with other health post acute care nurse and/or care coordination. Please see note for details. Procedure Note Valeria Nagel MD - 09/28/2023 Comprehensive ----- Pat. Name: CRISTY MERCADO Study Date: 09/28/2023 1:56pm Pat. NO: [id number] Referring MD: SOURAV PANDEY Site: [facility] Retread Supervisor: Irma Scott RDMS : 1985 Age: [...] 0 lb 8 oz EFW by Yandel (FFT-LF-OQ-FL) Head / Face / Neck Biometry: Chairperson Anesthesiology 5.1 mm CM 3.3 mm Nasal bone [...] Superior venacava. Inferior vena cava. 3-vessel view. 3-rohycz-hyuktdk view.Cardiac position. Cardiac size. Cardiac rhythm. Right [...] electronic medical record, andcommunicating with other health post acute care nurse and/or carecoordination. Please see note for details. [...] appeared long and closed. [facility] documented in this encounter Visit Diagnoses Diagnosis related condition, antepartum- Primary related condition, antepartum documented in this encounter Care Teams Rug Inspector Relationship Specialty Start Date End Date No Ref-Primary, Physician PCP - General 09/12/23 documented as of this encounter
--- OUTSIDE RECORDS SUMMARY | 2023-12-17 15:02 | XMS_ITS | Encounter Summary ---
Author Organization [facility] Address [address] [place] [address] Care Team Providers Care Interior Plant Caretaker Name Role Phone No Ref-Primary, Physician Primary Care Provider Reason for Visit * Reason Comments Ultrasound L2: AMA Genetic Counseling AMA Encounter Details Date Type Department Care Team (Late st Contact Info) Description 09/21/2023 PRE VISIT [facility] Maternal Medicine [facility] [place] [address] [facility] [address] [place] [address] Elizabeth Harman RN Ultrasound (L2: [...] on filedocumented in this encounter Care Teams Interior Plant Caretaker Relationship Specialty Start Date End Date No Ref-Primary, Physician PCP - General 09/12/23 documented as of this encounter
--- OUTSIDE RECORDS SUMMARY | 2023-12-17 15:02 | XMS_ITS | Clinical Summary ---
Author Organization [facility] Address [address] [place] [address] Care Team Providers Care Perfume Maker Name Role Phone No Ref-Primary, Physician Primary Care Provider Valeria Nagel MD Unavailable [phone] Encounters Date Type Department Care Team Description 10/24/2023 2:45 PM CDT Office Visit [facility] Maternal Medicine [place] [address] [place] [address] Valeria Nagel MD Bohren, Jessica, CNM Burn, Martina, MD related condition, antepartum (Primary Dx); Encounter for ultrasound to check growth 10/24/2023 1:55 PM CDT - 10/24/2023 11:59 PM CDT Hospital Encounter [facility] Medicine [facility] [address] [place] [address] Valeria Nagel MD Burn, Martina, MD Encounter for ultrasound to check growth Discharge Disposition: Home or Self Care 10/24/2023 Travel 09/28/2023 2:45 PM CDT Office Visit [facility] Maternal Medicine [facility] [address] [place] [address] Sourav Pandey CNM Sabol, Bethany, MD Encounter for ultrasound to check growth (Primary Dx); Multigravida of advanced maternal age in second trimester 09/28/2023 1:30 PM CDT Office Visit [facility] Maternal Medicine [facility] [address] [place] [address] Sourav Pandey CNM Sabol, Bethany, MD Volesky, Mariah, GC Multigravida of advanced maternal age in second trimester (Primary Dx); related condition, antepartum 09/28/2023 1:25 PM CDT - 09/28/2023 11:59 PM CDT Hospital Encounter [facility] Medicine [facility] [address] [facility] [address] [place] [address] Sourav Pandey CNM Sabol, Bethany, MD related condition, antepartum Discharge Disposition: Home or Self Care 09/28/2023 Travel 09/21/2023 PRE VISIT [facility] Maternal Medicine [facility] [address] [facility] [address] [place] [address] Elizabeth Harman RN Ultrasound (L2: AMA); Genetic [...] 3-dose series) 08/26/2014 07/29/2014, 07/24/2014 COVID-19 Vaccine (2022- season) 2023 03/24/2022, 03/03/2022 PHQ-2 (once per calendar year) 2023 MATERNAL SCREENING DISCUSSION 07/27/2023 YEARLY PREVENTIVE VISIT 09/23/2023 09/22/2022 OBGCT (OB) 11/02/2023 INFLUENZA VACCINE (#1) 2024 3, 04/19/2022, 03/05/2020, Additional history exists RSV VACCINE [...] Procedure Name Priority Date/Time Associated Diagnosis Comments [facility] US COMPREHENSIVE SINGLE F/U Routine 10/24/2023 2:32 PM CDT Encounter for ultrasound to check growth [facility] US COMPREHENSIVE SINGLE Routine 09/28/2023 3:02 PM CDT related condition, antepartum from Last 3 Months Results * [facility] US Comprehensive Single F/U (10/24/2023 2:32 [...] CDT ?Comp Follow Up ----- Pat. Name: OLGA MERCADO ? Study Date: ??10/24/2023 1:59pm Pat. NO: ??[id number] ?Referring ??MD: SOURAV PANDEY Site: ??[facility] ? Brick Setter: Xin Zarate RDMS : ??1985 ?Age: ?? [...] 1 lb 1 ?oz EFW by ?Hadlock ([id number]-XO-OI-FL) Head / Face / Neck Biometry: Career Transition Specialist ? 5.2 ? mm CM ?3.7 ? mm ANATOMY ----- The following structures appear normal: Head / Neck ? Cranium. Head size. Head shape. Lateral ventricles. Midline falx. Cavum septi pellucidi. Cerebellum. Cisterna magna. Thalami. Face ? Lips. Profile. Nose. Heart / Thorax ?4-chamber view. RVOT view. LVOT view. 0-yahrku-ayhbawz view. ? Diaphragm. Abdomen ? Stomach. Kidneys. [...] the patient (reviewing medical records/tests), in direct fuik-av-gawr contact with the patient during her visit with the majority spent counseling and discussing the plan of care and documenting the visit in the electronic medical record. Please see note for details. Procedure Note Zelda Raman MD - 10/24/2023 Comp Follow Up ----- Pat. Name: OLGA MERCADO Study Date: 10/24/2023 1:59pm Pat. NO: [id number] Referring MD: SOURAV PANDEY Site: [facility] Brick Setter: Xin Zarate RDMS : 1985 Age: 37 [...] 1 lb 1 oz EFW by Hadlock (WUH-EV-OC-FL) Head / Face / Neck Biometry: Career Transition Specialist 5.2 mm CM 3.7 mm ANATOMY ----- The following structures appear normal: Head / Neck Cranium. Head size. Head shape.Lateral ventricles. Midline falx. Cavum septi pellucidi. Cerebellum.Cisterna magna. Thalami. Face Lips. Profile. Nose. Heart / Thorax 4-chamber view. RVOT view. LVOT view.1-lugqha-otmquyb view. Diaphragm. Abdomen Stomach. Kidneys. Bladder. Spine [...] today's evaluation or if we can be [facility], please contact the M[facility]- Medicine Center. anomalies may be present but not detected I spent a total of 10 minutes on the date of this encounter includingpreparing to see the patient (reviewing medical records/tests), in sasqxtrxor-qi-gooq contact with the patient during her visit [...] fluid volume appeared normal. Valeria Nagel MD [facility] US ORDERABLE S * [facility] US Comprehensive Single (09/28/2023 3:02 PM [...] 3:51 PM CDT ?Comprehensive ----- Pat. Name: MARIAHLISADoloresOLGA ? Study Date: ??09/28/2023 1:56pm Pat. NO: ??[id number] ?Referring ??: SOURAV PANDEY Site: ??[facility] ? Brick Setter: Irma Scott RDMS : ??1985 ?Age: ?? [...] OFD ?55.4 ?mm ? 18w 2d ?Nicolaides ?153.6 ?mm ?18w 2d ?Hadlock Cerebellum tr ?19.2 ? mm ?18w 4d ?Nicolaides AC ?125.4 ?mm ?18w 1d ?20% ?Hadlock Femur ?26.6 ? mm ?18w 1d ?Hadlock Humerus ?25.3 ?mm ? 18w 0d ?Katelin Weight Calculation: EFW ? 226 ? g ? 10% ?Hadlock EFW (lb,oz) ? 0 lb 8 ?oz EFW by ?Hadlock (WMI-NO-ZH-FL) Head / Face / Neck Biometry: Career Transition Specialist ? 5.1 ? mm CM ?3.3 [...] cava. Inferior vena cava. 3-vessel ? view. 1-cklurk-urahjch view. Cardiac position. Cardiac size. Cardiac rhythm. [...] record, and communicating with other health resident care associate and/or care coordination. Please see note for details. Procedure Note Valeria Nagel MD - 09/28/2023 Comprehensive ----- Pat. Name: OLGA MERCADO Study Date: 09/28/2023 1:56pm Pat. NO: [id number] Referring MD: SOURAV PANDEY Site: [facility] Brick Setter: Irma Scott RDMS : 1985 Age: 37 [...] 0 lb 8 oz EFW by Hadlock (IAZ-PG-VS-FL) Head / Face / Neck Biometry: Career Transition Specialist 5.1 mm CM 3.3 mm Nasal [...] Superior venacava. Inferior vena cava. 3-vessel view. 2-crwwht-kjntusk view.Cardiac position. Cardiac size. Cardiac rhythm. Right [...] medical record, andcommunicating with other health resident care associate and/or carecoordination. Please see note for details. [...] appeared long and closed. Sourav Pandey CNRozina [facility] ORDERABLE S from Last 3 Months Care Teams Perfume Maker Relationship Specialty Start Date End Date No Ref-Primary, Physician PCP - General 09/12/23 Valeria Nagel MD [address] [place] [address] Assigned OBGYN Provider 10/30/23
--- OUTSIDE RECORDS SUMMARY | 2023-12-17 15:02 | XMS_ITS | Encounter Summary ---
Author Organization [facility] Address [address] [place] [address] Care Team Providers Care Heddle Machine Operator Name Role Phone No Ref-Primary, Physician [...] on filedocumented in this encounter Care Teams Heddle Machine Operator Relationship Specialty Start Date End Date No Ref-Primary, Physician PCP - General 09/12/23 documented as of this encounter
--- OUTSIDE RECORDS SUMMARY | 2023-12-17 15:02 | XMS_ITS | Encounter Summary ---
Author Organization [facility] Address [address] [place] [address] Care Team Providers Care Compliance Spec Name Role Phone No Ref-Primary, Physician Primary Care Provider Reason for Referral * Diagnostic Imaging Ultrasound (Routine) - Pending Review Specialty Diagnoses / Procedures Referred By Froy t Referred To Contact Radiology. Diagnoses Encounter for ultrasound to check growth Procedures [facility] US Comprehensive Single F/U Valeria Nagel MD [address] [facility] [address] [place] [address] Referral ID Status Reason Start Date Expiration Date V isits Requested Visits Authorized [id number] Pending Review 09/28/2023 09/27/2024 1 1 Reason for Visit * Diagnostic Imaging Ultrasound (Routine) - Pending Review Specialty Diagnoses / Procedures Referred By Froy godwin Referred To Contact Radiology. Diagnoses Encounter for ultrasound to check growth Procedures [facility] US Comprehensive Single F/U Valeria Nagel MD [address] [place] [address] Referral ID Status Reason Start Date Expiration Date V isits Requested Visits Authorized [id number] Pending Review 09/28/2023 09/27/2024 1 1 Encounter Details Date Type Department Care Team (Latest Contact Info) Description 10/24/2023 1:55 PM CDT - 10/24/2023 11:59 PM CDT Hospital Encounter [facility] Maternal Medicine [facility] [address] [place] [address] Valeria Nagel MD [address] [place] [address] Zelda Raman MD [address] [place] [address] Encounter for ultrasound to check [...] Procedure Name Priority Date/Time Associated Diagnosis Comments [facility] US COMPREHENSIVE SINGLE F/U Routine 10/24/2023 2:32 PM CDT Encounter for ultrasound to check growth documented in this encounter Results * [facility] US Comprehensive Single F/U (10/24/2023 2:32 [...] ? Study Date: ??10/24/2023 1:59pm Pat. NO: ??[id number] ?Referring ??MD: SOURAV SIMMONS Site: ??[facility] ? Oven Dauber: Xin Zarate RDMS : ??1985 ?Age: ?? [...] 1 lb 1 ?oz EFW by ?Hadlock (GIW-GQ-BY-FL) Head / Face / Neck Biometry: Booth Manager ? 5.2 ? mm CM ?3.7 ? mm ANATOMY ----- The following structures appear normal: Head / Neck ? Cranium. Head size. Head shape. Lateral ventricles. Midline falx. Cavum septi pellucidi. Cerebellum. Cisterna magna. Thalami. Face ? Lips. Profile. Nose. Heart / Thorax ?4-chamber view. RVOT view. LVOT view. 3-tvbpde-amqfivc view. ? Diaphragm. Abdomen ? Stomach. Kidneys. [...] the patient (reviewing medical records/tests), in direct kgwf-ya-zcku contact with the patient during her visit with the majority spent counseling and discussing the plan of care and documenting the visit in the electronic medical record. Please see note for details. Procedure Note Zelda Raman MD - 10/24/2023 Comp Follow Up ----- Pat. Name: CRISTY MERCADO Study Date: 10/24/2023 1:59pm Pat. NO: [id number] Referring MD: SOURAV SIMMONS Site: [facility] Oven Dauber: Xin Zarate RDMS : 1985 Age: 37 [...] 1 lb 1 oz EFW by Hadlock (RVO-ZO-BD-FL) Head / Face / Neck Biometry: Booth Manager 5.2 mm CM 3.7 mm ANATOMY ----- The following structures appear normal: Head / Neck Cranium. Head size. Head shape.Lateral ventricles. Midline falx. Cavum septi pellucidi. Cerebellum.Cisterna magna. Thalami. Face Lips. Profile. Nose. Heart / Thorax 4-chamber view. RVOT view. LVOT view.3-sbbbhy-dysbnzq view. Diaphragm. Abdomen Stomach. Kidneys. Bladder. Spine [...] see the patient (reviewing medical records/tests), in paerpyynat-jq-alon contact with the patient during her visit [...] growth documented in this encounter Care Teams Compliance Spec Relationship Specialty Start Date End Date No Ref-Primary, Physician PCP - General 09/12/23 documented as of this encounter
--- OUTSIDE RECORDS SUMMARY | 2023-12-17 15:02 | XMS_ITS | Encounter Summary ---
Author Organization [facility] Address [address] [place] [address] Care Team Providers Care Catering Coordinator Name Role Phone No Ref-Primary, Physician Primary Care Provider Reason for Referral * Diagnostic Imaging Ultrasound (Routine) - Pending Review Specialty Diagnoses / Procedures Referred By Kathrynac t Referred To Contact Radiology. Diagnoses related condition, antepartum Procedures [facility] US Comprehensive Single Sourav Pandey CNM [facility] [address] [place] [address] Referral ID Status Reason Start Date Expiration Date V isits Requested Visits Authorized [id number] Pending Review 09/12/2023 09/11/2024 1 1 Reason for Visit * Diagnostic Imaging Ultrasound (Routine) - Pending Review Specialty Diagnoses / Procedures Referred By Froy godwin Referred To Contact Radiology. Diagnoses related condition, antepartum Procedures [facility] US Comprehensive Single Sourav Pandey CNM [facility] [address] [place] [address] Referral ID Status Reason Start Date Expiration Date V isits Requested Visits Authorized [id number] Pending Review 09/12/2023 09/11/2024 1 1 Encounter Details Date Type Department Care Team (Latest Contact Info) Description 09/28/2023 1:25 PM CDT - 09/28/2023 11:59 PM CDT Hospital Encounter [facility] Maternal Medicine [facility] [address] [place] [address] Sourav Pandey CNM [facility] [address] [place] [address] Valeria Nagel MD [address] [place] [address] related condition, antepartum Discharge Disposition: Home or [...] Procedure Name Priority Date/Time Associated Diagnosis Comments [facility] US COMPREHENSIVE SINGLE Routine 09/28/2023 3:02 PM CDT related condition, antepartum documented in this encounter Results * [facility] US Comprehensive Single (09/28/2023 3:02 PM [...] ? Study Date: ??09/28/2023 1:56pm Pat. NO: ??[id number] ?Referring ??MD: SOURAV PANDEY Site: ??[facility] ? Power Bender Operator: Irma Scott RDMS : ??1985 ?Age: ?? [...] 0 lb 8 ?oz EFW by ?Hadlock ([id number]-MQ-YQ-FL) Head / Face / Neck Biometry: Senior Pricing Analyst ? 5.1 ? mm CM ?3.3 ? [...] cava. Inferior vena cava. 3-vessel ? view. 0-igboik-atblmqf view. Cardiac position. Cardiac size. Cardiac rhythm. [...] medical record, and communicating with other health transitional care liaison and/or care coordination. Please see note for details. Procedure Note Valeria Nagel MD - 09/28/2023 Comprehensive ----- Pat. Name: CRISTY MERCADO Study Date: 09/28/2023 1:56pm Pat. NO: [id number] Referring MD: SOURAV PANDEY Site: [facility] Power Bender Operator: Irma Scott RDMS : 1985 Age: 37 [...] 0 lb 8 oz EFW by Hadlock (GIB-SC-YU-FL) Head / Face / Neck Biometry: Senior Pricing Analyst 5.1 mm CM 3.3 mm Nasal bone [...] Superior venacava. Inferior vena cava. 3-vessel view. 0-ztszic-mxrpdwe view.Cardiac position. Cardiac size. Cardiac rhythm. Right [...] electronic medical record, andcommunicating with other health transitional care liaison and/or carecoordination. Please see note for details. [...] antepartum documented in this encounter Care Teams Catering Coordinator Relationship Specialty Start Date End Date No Ref-Primary, Physician PCP - General 09/12/23 documented as of this encounter
--- OUTSIDE RECORDS SUMMARY | 2023-12-17 15:02 | XMS_ITS | Encounter Summary ---
Author Organization [facility] Address [address] [place] [address]. [place] [address] Care Team Providers Care Scada Engineer Name Role Phone No Ref-Primary, Physician Primary Care Provider Reason for Referral * Diagnostic Imaging Ultrasound (Routine) - Pending Review Specialty Diagnoses / Procedures Referred By Froy t Referred To Contact Radiology. Diagnoses Encounter for ultrasound to check growth Procedures [facility] US Comprehensive Single F/U Valeria Nagel MD [address] [place] [address] Referral ID Status Reason Start Date Expiration Date V isits Requested Visits Authorized [id number] Pending Review 09/28/2023 09/27/2024 1 1 Reason for Visit * Reason Comments Genetic Counseling AMA Ultrasound L2-AMA Encounter Details Date Type Department Care Team (Late st Contact Info) Description 09/28/2023 2:45 PM CDT Office Visit [facility] [place] [address] [place] [address] Sourav Pandey CNM [facility] [address] [place] [address] Valeria Nagel MD [address] [place] [address] Encounter for ultrasound to check [...] in the Maternal- Medicine Center at the [facility] today. For a detailed report of the ultrasound examination, please see the ultrasound report which can be found under the imaging tab. If you have questions regarding today's evaluation or if we can be of further service, please contact the Maternal- Medicine Center. Valeria Nagel MD Technical Cable Jointer, OPERATOR Maternal- Medicine [phone] (Pager) documented in this encounter Plan of [...] ? Study Date: ??10/24/2023 1:59pm Pat. NO: ??[id number] ?Referring ??MD: SOURAV PANDEY Site: ??[facility] ? Sports Development Officer: Xin Zarate RDMS : ??1985 ?Age: ?? [...] 1 lb 1 ?oz EFW by ?Hadlock (SKQ-GT-YJ-FL) Head / Face / Neck Biometry: Sales Management Trainee ? 5.2 ? mm CM ?3.7 ? mm ANATOMY ----- The following structures appear normal: Head / Neck ? Cranium. Head size. Head shape. Lateral ventricles. Midline falx. Cavum septi pellucidi. Cerebellum. Cisterna magna. Thalami. Face ? Lips. Profile. Nose. Heart / Thorax ?4-chamber view. RVOT view. LVOT view. 4-hvldzq-iqpzoif view. ? Diaphragm. Abdomen ? Stomach. Kidneys. [...] the patient (reviewing medical records/tests), in direct byno-ln-vioe contact with the patient during her visit with the majority spent counseling and discussing the plan of care and documenting the visit in the electronic medical record. Please see note for details. Procedure Note Zelda Raman MD - 10/24/2023 Comp Follow Up ----- Pat. Name: CRISTY MERCADO Study Date: 10/24/2023 1:59pm Pat. NO: [id number] Referring MD: SOURAV PANDEY Site: [facility] Sports Development Officer: Xin Zarate RDMS : 1985 Age: 37 [...] 1 lb 1 oz EFW by Hadlock (ZFQ-PV-IJ-FL) Head / Face / Neck Biometry: Sales Management Trainee 5.2 mm CM 3.7 mm ANATOMY ----- The following structures appear normal: Head / Neck Cranium. Head size. Head shape.Lateral ventricles. Midline falx. Cavum septi pellucidi. Cerebellum.Cisterna magna. Thalami. Face Lips. Profile. Nose. Heart / Thorax 4-chamber view. RVOT view. LVOT view.6-hyehaj-sfeveik view. Diaphragm. Abdomen Stomach. Kidneys. Bladder. Spine [...] see the patient (reviewing medical records/tests), in ucaswtlknj-rx-jhmz contact with the patient during her visit [...] fluid volume appeared normal. Valeria Nagel MD [facility] ORDER[facility] S documented in this encounter Visit Diagnoses Diagnosis Encounter for ultrasound to check growth- Primary Multigravida of advanced maternal age in second trimester Encounter for ultrasound to check growth documented in this encounter Care Teams Scada Engineer Relationship Specialty Start Date End Date No Ref-Primary, Physician PCP - General 09/12/23 documented as of this encounter
--- OUTSIDE RECORDS SUMMARY | 2023-12-17 15:02 | XMS_ITS | Encounter Summary ---
Author Organization [facility] Address [facility] [place] [address] Care Team Providers Care Beveling Machine Operator Name Role Phone No Ref-Primary, Physician Primary Care Provider Reason for Visit * Reason Comments Ultrasound RL2- EFW 10% Encounter Details Date Type Department Care Team (Late st Contact Info) Description 10/24/2023 2:45 PM CDT Office Visit [facility] M[facility] Medicine [facility] [place] [address] [place] [address] Valeria Nagel MD [address] [place] [address] Karen Pandey, [facility] [address] [place] [address] Zelda Raman MD [address] [place] [address] related condition, antepartum (Primary Dx); [...] growth documented in this encounter Care Teams Beveling Machine Operator Relationship Specialty Start Date End Date No Ref-Primary, Physician PCP - General 09/12/23 documented as of this encounter
--- OUTSIDE RECORDS SUMMARY | 2023-12-17 15:02 | XMS_ITS | Encounter Summary ---
Author Organization [facility] Address [address] [place] [address]. [place] [address] Care Team Providers Care Equipment Lead Name Role Phone No Ref-Primary, Physician Primary Care Provider Encounter Details Date Type Department Care Team (Late st Contact Info) Description 09/09/2023 Medical Correspondence [facility] Info Mgmt [facility] [address] [place] [address] Scan, Non-Provider Social History Tobacco [...] on filedocumented in this encounter Care Teams Equipment Lead Relationship Specialty Start Date End Date No Ref-Primary, Physician PCP - General 09/12/23 documented as of this encounter
[2023-12-17 15:14] VITALS: BP 110/64; PULSE 86
[2023-12-17 15:41] LABS: Amnisure Rom* Negative
[2023-12-17 16:05] LABS: Appearance Urine Clear (Clear); Bilirubin Urine Negative (Negative); Blood Urine Negative (Negative); Color Urine Yellow (Yellow); Glucose Urine Negative (Negative); Ketones Urine Negative (Negative); Leukocyte Esterase Urine Negative (Negative); Nitrite Urine Negative (Negative); Protein Urine Negative (Negative); Specific Gravity Urine <= 1.005 (1.000-1.030); Urobilinogen Urine 0.2 (0.2-1.0); pH Urine 5.5 (5.0-8.5)
--- NOTE | 2023-12-17 16:29 | PC.OBNST ---
NST Note NST Note Start: 12/17/23 13:59 Freq: ONCE Status: Active Protocol: Document 12/17/23 16:28 HCR (Rec: 12/17/23 16:29 HCR [id number]) NST Note 2 Para (# of births) 1 EDC 02/22/24 Gestational Age In Weeks & Days 30 Weeks & 3 Days Patient Presented with Complaint(s) of Contractions/cramping,Leaking fluid Reactive Yes Appropriate for Gestational Age Yes BRIANNE Ruiz, BRIANNE Date 12/17/23 Reactive Yes Appropriate for Gestational Age Yes BRIANNE Bridges, BRIANNE Date 12/17/23 OB NST charge Yes Complete NST Note via Write Note Yes The provider's electronic signature indicates the NST is reactive/appropriate for gestational age. *Note to provider: If an addendum is required, open the patient's chart and click on the note under the Nurse/Allied Health tab.
== END 2023-12-17 16:30 | disposition home or self-care (01) ==
LOC: OB OUT 15:01 → OB 15:01
PROVIDERS: Visit Provider Advanced Practice Midwife
DX: O47.03 False labor before 37 completed weeks of gestation, third trimester (principal); Z3A.30 30 weeks gestation of pregnancy
CPT/HCPCS: 59025; 81003; 84112; G0463

== ENCOUNTER 2023-12-29 12:46 | Outpatient (CLI) | payer OTHER, SELFPAY ==
--- OUTSIDE RECORDS SUMMARY | 2023-12-29 12:50 | XMS_ITS | Encounter Summary ---
Author Organization [facility] Address [address] [place] [address] Care Team Providers Care Pineapple Plantation Manager Name Role Phone No Ref-Primary, Physician [...] on filedocumented in this encounter Care Teams Pineapple Plantation Manager Relationship Specialty Start Date End Date No Ref-Primary, Physician PCP - General 09/12/23 documented as of this encounter
--- OUTSIDE RECORDS SUMMARY | 2023-12-29 12:50 | XMS_ITS | Referral Summary ---
Author Organization [facility] Address [address] [place] [address] Care Team Providers Care Catalyst Supervisor Name Role Phone No Ref-Primary, Physician Primary Care Provider Valeria Nagel MD Unavailable [phone] Encounters Date Type Department Care Team Description 10/24/2023 Travel 10/24/2023 2:45 PM CDT Office Visit [facility] Medicine [facility] [address] [place] [address] Valeria Nagel MD Bohren, Jessica, CNM Burn, Martina, MD related condition, antepartum (Primary Dx); Encounter for ultrasound to check growth 10/24/2023 1:55 PM CDT - 10/24/2023 11:59 PM CDT Hospital Encounter [facility] Medicine [facility] [address] [place] [phone] Valeria Nagel MD Burn, Martina, MD Encounter for ultrasound to check growth Discharge Disposition: Home or Self Care 09/28/2023 Travel 09/28/2023 2:45 PM CDT Office Visit [facility] Medicine [facility] [address] [place] [phone] Sourav Pandey CNM Sabol, Bethany, MD Encounter for ultrasound to check growth (Primary Dx); Multigravida of advanced maternal age in second trimester 09/28/2023 1:25 PM CDT - 09/28/2023 11:59 PM CDT Hospital Encounter [facility] [place] [address] [place] [phone] Sourav Pandey CNM Sabol, Bethany, MD related condition, antepartum Discharge Disposition: Home or Self Care 09/28/2023 1:30 PM CDT Office Visit [facility] M[facility] Medicine [facility] [place] [address] [place] [phone] Sourav Pandey CNM Sabol, Bethany, MD Volesky, Mariah, SULEMAN Multigravida of advanced maternal age in second trimester (Primary Dx); related condition, antepartum from Last 3 Months Social History Tobacco [...] Procedure Name Priority Date/Time Associated Diagnosis Comments [facility] US COMPREHENSIVE SINGLE F/U Routine 10/24/2023 2:32 PM CDT Encounter for ultrasound to check growth [facility] US COMPREHENSIVE SINGLE Routine 09/28/2023 3:02 PM CDT related condition, antepartum from Last 3 Months Results * [facility] US Comprehensive Single F/U (10/24/2023 2:32 [...] CDT ?Comp Follow Up ----- Pat. Name: JESS OLGA ? Study Date: ??10/24/2023 1:59pm Pat. NO: ??[id number] ?Referring ??MD: SOURAV PANDEY Site: ??[facility] ? Orange Picking Supervisor: Xin Zarate RDMS : ??1985 ?Age: [...] 1 lb 1 ?oz EFW by ?Hadlock (TTP-HF-YH-FL) Head / Face / Neck Biometry: Enterprise Solutions Architect ? 5.2 ? mm CM ?3.7 ? mm ANATOMY ----- The following structures appear normal: Head / Neck ? Cranium. Head size. Head shape. Lateral ventricles. Midline falx. Cavum septi pellucidi. Cerebellum. Cisterna magna. Thalami. Face ? Lips. Profile. Nose. Heart / Thorax ?4-chamber view. RVOT view. LVOT view. 9-mbslub-wwrrbkm view. ? Diaphragm. Abdomen ? Stomach. Kidneys. [...] the patient (reviewing medical records/tests), in direct zuzb-kq-krxy contact with the patient during her visit with the majority spent counseling and discussing the plan of care and documenting the visit in the electronic medical record. Please see note for details. Procedure Note Zelda Raman MD - 10/24/2023 Comp Follow Up ----- Pat. Name: OLGA MERCADO Study Date: 10/24/2023 1:59pm Pat. NO: [id number] Referring MD: SOURAV PANDEY Site: [facility] Orange Picking Supervisor: Xin Zarate RDMS : 1985 Age: [...] 1 lb 1 oz EFW by Hadlock (GXP-SK-FD-FL) Head / Face / Neck Biometry: Enterprise Solutions Architect 5.2 mm CM 3.7 mm ANATOMY ----- The following structures appear normal: Head / Neck Cranium. Head size. Head shape.Lateral ventricles. Midline falx. Cavum septi pellucidi. Cerebellum.Cisterna magna. Thalami. Face Lips. Profile. Nose. Heart / Thorax 4-chamber view. RVOT view. LVOT view.3-biqlpx-biihiuq view. Diaphragm. Abdomen Stomach. Kidneys. Bladder. Spine [...] see the patient (reviewing medical records/tests), in ypzbpspwvm-cu-lgkd contact with the patient during her visit [...] fluid volume appeared normal. Valeria Nagel MD [facility] US ORDERABLE S [facility] US Comprehensive Single (09/28/2023 3:02 PM CDT) [...] ? Study Date: ??09/28/2023 1:56pm Pat. NO: ??[id number] ?Referring ??: SOURAV PANDEY Site: ??[facility] ? Orange Picking Supervisor: Irma Scott RDMS : ??1985 ?Age: [...] 0 lb 8 ?oz EFW by ?Hadlock (CKF-OM-BK-FL) Head / Face / Neck Biometry: Enterprise Solutions Architect ? 5.1 ? mm CM ?3.3 ? [...] cava. Inferior vena cava. 3-vessel ? view. 1-srhznn-bllyquq view. Cardiac position. Cardiac size. Cardiac rhythm. [...] medical record, and communicating with other health wound care nurse and/or care coordination. Please see note for details. Procedure Note Valeria Nagel MD - 09/28/2023 Comprehensive ----- Pat. Name: OLGA MRECADO Study Date: 09/28/2023 1:56pm Pat. NO: [id number] Referring MD: SOURAV PANDEY Site: [facility] Orange Picking Supervisor: Irma Scott RDMS : 1985 Age: [...] 0 lb 8 oz EFW by Yandel (OBO-DG-MM-FL) Head / Face / Neck Biometry: Enterprise Solutions Architect 5.1 mm CM 3.3 mm Nasal bone [...] Superior venacava. Inferior vena cava. 3-vessel view. 7-kklwyi-ohiouxm view.Cardiac position. Cardiac size. Cardiac rhythm. Right [...] electronic medical record, andcommunicating with other health wound care nurse and/or carecoordination. Please see note [...] long and closed. Sourav Pandey CN [facility] US ORDERABLE S from Last 3 Months Care Teams Catalyst Supervisor Relationship Specialty Start Date End Date No Ref-Primary, Physician PCP - General 09/12/23 Valeria Nagel MD [address] [place] [address] Assigned OBGYN Provider 10/30/23
--- OUTSIDE RECORDS SUMMARY | 2023-12-29 12:50 | XMS_ITS | Encounter Summary ---
Author Organization [facility] Address [address] [place] [address] Care Team Providers Care Ammonia Solution Preparer Name Role Phone No Ref-Primary, Physician Primary Care Provider Reason for Visit * Reason Comments Genetic Counseling * Consultation (Routine: Next available opening) - Pending Review Specialty Diagnoses / Procedures Referred By Froy godwin Referred To Contact Diagnoses related condition, antepartum Karen Pandey CNM [facility] [address] [place] [address] Referral ID Status Reason Start Date Expiration Date V isits Requested Visits Authorized [id number] Pending Review 09/12/2023 09/11/2024 1 1 Encounter Details Date Type Department Care Team (Late st Contact Info) Description 09/28/2023 1:30 PM CDT Office Visit [facility] [place] [address] [place] [phone] Karen Pandey [facility] [address] [place] [address] Valeria Nagel MD [address] [place] [address] Jana Saldaña GC MATERNAL [facility]IC[facility] [address] [place] [id number] Multigravida of advanced maternal age in second [...] Saldaña GC - 09/28/2023 1:30 PM CDT [facility] Genetic Counseling Consult Patient: Cristy Gutierrezeugenio Preferred Name: Cristy Date of : 1985 Date of Service: 09/28/23 Cristy was seen at the [facility] for genetic consultation. The indication for genetic counseling is advanced maternal age. The patient was accompanied to this visit by their partner, Kimo. The session was conducted in Mal[place]. IMPRESSION/ PLAN 1. Cristy had genetic screening earlier in this . Their non-invasive test was screen negative or low risk for screened conditions 2. During today's [facility] visit, Cristy had a genetic counseling [...] Further recommendation include a follow-up ultrasound with [facility]. The upcoming ultrasound has beenscheduled for [...] is scanned under the Media tab in [place]. The family history was reported by Cristy [...] wants more information they can contact the [facility] Cancer Risk Management Program ( ). Physicians can also make referrals at [email or web address]/se [email or web address]-mlyt-wbdvvtysna-program or, if within the [employer] system, through [facility] referral for Cancer Risk Mgmt/Cancer Genetic Counseling. Information regarding the [employer] Cancer RiskManagement program was provided to Kimo [...] pleasure to be involved with Cristy???s care. Mpae-qs-ktcl time of the meeting was 30 minutes. Jana Saldaña GC, MS, [facility] Board Certified and [place] Licensed Genetic Counselor [facility] Maternal Medicine Office: [phone] [facility]: [phone] [facility] documented in this encounter Plan of Treatment Not on file documented as of this encounter Visit Diagnoses Diagnosis Multigravida of advanced maternal age in second trimester- Primary related condition, antepartum documented in this encounter Care Teams Ammonia Solution Preparer Relationship Specialty Start Date End Date No Ref-Primary, Physician PCP - General 09/12/23 documented as of this encounter
--- OUTSIDE RECORDS SUMMARY | 2023-12-29 12:50 | XMS_ITS | Encounter Summary ---
Author Organization [place] Address [address] [place] [address] Care Team Providers Care Clinical Team Manager Name Role Phone No Ref-Primary, Physician Primary Care Provider Reason for Referral * Diagnostic Imaging Ultrasound (Routine) - Pending Review Specialty Diagnoses / Procedures Referred By Froy t Referred To Contact Radiology. Diagnoses Encounter for ultrasound to check growth Procedures [facility] US Comprehensive Single F/U Valeria Nagel MD [address] [facility] [address] [facility] [address] [place] [address] Referral ID Status Reason Start Date Expiration Date V isits Requested Visits Authorized [id number] Pending Review 09/28/2023 09/27/2024 1 1 Reason for Visit * Diagnostic Imaging Ultrasound (Routine) - Pending Review Specialty Diagnoses / Procedures Referred By Froy godwin Referred To Contact Radiology. Diagnoses Encounter for ultrasound to check growth Procedures [facility] US Comprehensive Single F/U Valeria Nagel MD [address] [place] [address] Referral ID Status Reason Start Date Expiration Date V isits Requested Visits Authorized [id number] Pending Review 09/28/2023 09/27/2024 1 1 Encounter Details Date Type Department Care Team (Latest Contact Info) Description 10/24/2023 1:55 PM CDT - 10/24/2023 11:59 PM CDT Hospital Encounter [facility] Maternal Medicine [facility] [address] [facility] [address] [place] [address] Valeria Nagel MD [address] [place] [address] Zelda Raman MD [address] [place] [address] Encounter for ultrasound to check [...] Procedure Name Priority Date/Time Associated Diagnosis Comments [facility] US COMPREHENSIVE SINGLE F/U Routine 10/24/2023 2:32 PM CDT Encounter for ultrasound to check growth documented in this encounter Results * [facility] US Comprehensive Single F/U (10/24/2023 2:32 PM [...] ? Study Date: ??10/24/2023 1:59pm Pat. NO: ??[id number] ?Referring ??MD: SOURAV SIMMONS Site: ??[facility] ? Curb Setter: Xin Zarate RDMS : ??1985 ?Age: [...] 1 lb 1 ?oz EFW by ?Hadlock (IRX-BR-JC-FL) Head / Face / Neck Biometry: Wall Mirror Department Supervisor ? 5.2 ? mm CM ?3.7 ? mm ANATOMY ----- The following structures appear normal: Head / Neck ? Cranium. Head size. Head shape. Lateral ventricles. Midline falx. Cavum septi pellucidi. Cerebellum. Cisterna magna. Thalami. Face ? Lips. Profile. Nose. Heart / Thorax ?4-chamber view. RVOT view. LVOT view. 5-djgaww-hrhlibn view. ? Diaphragm. Abdomen ? Stomach. Kidneys. [...] the patient (reviewing medical records/tests), in direct vzxw-ae-asrm contact with the patient during her visit with the majority spent counseling and discussing the plan of care and documenting the visit in the electronic medical record. Please see note for details. Procedure Note Zelda Raman MD - 10/24/2023 Comp Follow Up ----- Pat. Name: CRISTY MERCADO Study Date: 10/24/2023 1:59pm Pat. NO: [id number] Referring MD: SOURAV SIMMONS Site: [facility] Curb Setter: Xin Zarate RDMS : 1985 Age: [...] 1 lb 1 oz EFW by Hadlock ([id number]-XE-OB-FL) Head / Face / Neck Biometry: Wall Mirror Department Supervisor 5.2 mm CM 3.7 mm ANATOMY ----- The following structures appear normal: Head / Neck Cranium. Head size. Head shape.Lateral ventricles. Midline falx. Cavum septi pellucidi. Cerebellum.Cisterna magna. Thalami. Face Lips. Profile. Nose. Heart / Thorax 4-chamber view. RVOT view. LVOT view.4-docheq-uskrjjt view. Diaphragm. Abdomen Stomach. Kidneys. Bladder. Spine [...] see the patient (reviewing medical records/tests), in mziztpebfb-yf-fegx contact with the patient during her visit [...] growth documented in this encounter Care Teams Clinical Team Manager Relationship Specialty Start Date End Date No Ref-Primary, Physician PCP - General 09/12/23 documented as of this encounter
--- OUTSIDE RECORDS SUMMARY | 2023-12-29 12:50 | XMS_ITS | Encounter Summary ---
Author Organization [place] Address [address] [place] [address] Care Team Providers Care Payer Specialist Name Role Phone No Ref-Primary, Physician Primary Care Provider Reason for Referral * Diagnostic Imaging Ultrasound (Routine) - Pending Review Specialty Diagnoses / Procedures Referred By Kathrynac t Referred To Contact Radiology. Diagnoses related condition, antepartum Procedures [facility] US Comprehensive Single Sourav Pandey CNM [facility] [address] [place] [address] Referral ID Status Reason Start Date Expiration Date V isits Requested Visits Authorized [id number] Pending Review 09/12/2023 09/11/2024 1 1 Reason for Visit * Diagnostic Imaging Ultrasound (Routine) - Pending Review Specialty Diagnoses / Procedures Referred By Froy godwin Referred To Contact Radiology. Diagnoses related condition, antepartum Procedures [facility] US Comprehensive Single Sourav Pandey CNM [facility] [address] [place] [address] Referral ID Status Reason Start Date Expiration Date V isits Requested Visits Authorized [id number] Pending Review 09/12/2023 09/11/2024 1 1 Encounter Details Date Type Department Care Team (Latest Contact Info) Description 09/28/2023 1:25 PM CDT - 09/28/2023 11:59 PM CDT Hospital Encounter [facility] Maternal Medicine [facility] [address] [facility] [address] [place] [address] Sourav Pandey CNM [facility] [address] [place] [address] Valeria Nagel MD [address] [place] [address] related condition, antepartum Discharge Disposition: Home or [...] Diagnosis Comments [facility] US COMPREHENSIVE SINGLE Routine 09/28/2023 3:02 PM CDT related condition, antepartum documented in this encounter Results * [facility] US Comprehensive Single (09/28/2023 3:02 PM [...] ? Study Date: ??09/28/2023 1:56pm Pat. NO: ??[id number] ?Referring ??MD: SOURAV PANDEY Site: ??[facility] ? Production Expert: Irma Scott RDMS : ??1985 ?Age: ?? 37 ----- INDICATION ----- Advanced Maternal Age METHOD ----- Transabdominal ultrasound examination. View: Sufficient ----- [place] . Number of fetuses: 1 DATING ----- [...] 0 lb 8 ?oz EFW by ?Hadlock ([id number]-LY-AK-FL) Head / Face / Neck Biometry: Special Procedure Tech ? 5.1 ? mm CM ?3.3 ? [...] cava. Inferior vena cava. 3-vessel ? view. 2-dyhfvs-huahioy view. Cardiac position. Cardiac size. Cardiac rhythm. [...] medical record, and communicating with other health respiratory care faculty and/or care coordination. Please see note for details. Procedure Note Valeria Nagel MD - 09/28/2023 Comprehensive ----- Pat. Name: CRISTY MERCADO Study Date: 09/28/2023 1:56pm Pat. NO: [id number] Referring MD: SOURAV PANDEY Site: [facility] Production Expert: Irma Scott RDMS : 1985 Age: 37 [...] 0 lb 8 oz EFW by Hadlock (WQS-HU-XB-FL) Head / Face / Neck Biometry: Special Procedure Tech 5.1 mm CM 3.3 mm Nasal bone [...] Superior venacava. Inferior vena cava. 3-vessel view. 6-qthhnm-cdziddy view.Cardiac position. Cardiac size. Cardiac rhythm. Right [...] electronic medical record, andcommunicating with other health respiratory care faculty and/or carecoordination. Please see note for details. [...] antepartum documented in this encounter Care Teams Payer Specialist Relationship Specialty Start Date End Date No Ref-Primary, Physician PCP - General 09/12/23 documented as of this encounter
--- OUTSIDE RECORDS SUMMARY | 2023-12-29 12:50 | XMS_ITS | Clinical Summary ---
Author Organization [place] Address [address] [place] [address] Care Team Providers Care Hand Straightener Name Role Phone No Ref-Primary, Physician Primary Care Provider Valeria Nagel MD Unavailable [phone] Encounters Date Type Department Care Team Description 10/24/2023 2:45 PM CDT Office Visit [facility] Maternal Medicine [place] [address] [place] [address] Valeria Nagel MD Bohren, Jessica, CNM Burn, Martina, MD related condition, antepartum (Primary Dx); Encounter for ultrasound to check growth 10/24/2023 1:55 PM CDT - 10/24/2023 11:59 PM CDT Hospital Encounter [facility] Medicine [facility] [address] [place] [address] Valeria Nagel MD Burn, Martina, MD Encounter for ultrasound to check growth Discharge Disposition: Home or Self Care 10/24/2023 Travel 09/28/2023 2:45 PM CDT Office Visit [facility] Maternal Medicine [facility] [address] [place] [address] Sourav Pandey CNM Sabol, Bethany, MD Encounter for ultrasound to check growth (Primary Dx); Multigravida of advanced maternal age in second trimester 09/28/2023 1:30 PM CDT Office Visit [facility] Maternal Medicine [facility] [address] [place] [address] Sourav Pandey CNM Sabol, Bethany, MD Volesky, Mariah, GC Multigravida of advanced maternal age in second trimester (Primary Dx); related condition, antepartum 09/28/2023 1:25 PM CDT - 09/28/2023 11:59 PM CDT Hospital Encounter [facility] Maternal Medicine [facility] [place] [address] [facility] [address] [place] [address] Sourav Pandey CNM Sabol, Bethany, MD related condition, antepartum Discharge Disposition: Home or Self Care 09/28/2023 Travel from Last 3 Months Social History Tobacco [...] Procedure Name Priority Date/Time Associated Diagnosis Comments [facility] US COMPREHENSIVE SINGLE F/U Routine 10/24/2023 2:32 PM CDT Encounter for ultrasound to check growth [facility] US COMPREHENSIVE SINGLE Routine 09/28/2023 3:02 PM CDT related condition, antepartum from Last 3 Months Results * [facility] US Comprehensive Single F/U (10/24/2023 2:32 [...] ? Study Date: ??10/24/2023 1:59pm Pat. NO: ??[id number] ?Referring ??MD: SOURAV PANDEY Site: ??[facility] ? Injection Molding Process Technician: Xin Zarate RDMS : ??1985 ?Age: ?? [...] 1 lb 1 ?oz EFW by ?Hadlock (PLX-PC-IN-NE) Head / Face / Neck Biometry: Product Development ? 5.2 ? mm CM ?3.7 ? mm ANATOMY ----- The following structures appear normal: Head / Neck ? Cranium. Head size. Head shape. Lateral ventricles. Midline falx. Cavum septi pellucidi. Cerebellum. Cisterna magna. Thalami. Face ? Lips. Profile. Nose. Heart / Thorax ?4-chamber view. RVOT view. LVOT view. 5-zmgdcx-yybydmy view. ? Diaphragm. Abdomen ? Stomach. Kidneys. [...] the patient (reviewing medical records/tests), in direct jaow-bo-dgzo contact with the patient during her visit with the majority spent counseling and discussing the plan of care and documenting the visit in the electronic medical record. Please see note for details. Procedure Note Zelda Raman MD - 10/24/2023 Comp Follow Up ----- Pat. Name: CRISTY MERCADO Study Date: 10/24/2023 1:59pm Pat. NO: [id number] Referring MD: SOURAV PANDEY Site: [facility] Injection Molding Process Technician: Xin Zarate RDMS : 1985 Age: 37 [...] 1 lb 1 oz EFW by Hadlock (GGI-LY-QV-FL) Head / Face / Neck Biometry: Product Development 5.2 mm CM 3.7 mm ANATOMY ----- The following structures appear normal: Head / Neck Cranium. Head size. Head shape.Lateral ventricles. Midline falx. Cavum septi pellucidi. Cerebellum.Cisterna magna. Thalami. Face Lips. Profile. Nose. Heart / Thorax 4-chamber view. RVOT view. LVOT view.4-tzmnkb-nivexdi view. Diaphragm. Abdomen Stomach. Kidneys. Bladder. Spine [...] see the patient (reviewing medical records/tests), in bhzuskxrwk-da-ogrr contact with the patient during her visit [...] fluid volume appeared normal. Valeria Nagel MD Nick [facility] US ORDERABLE S * [facility] US Comprehensive Single (09/28/2023 3:02 PM [...] 3:51 PM CDT ?Comprehensive ----- Pat. Name: MARIAHLISADoloresCRISTY ? Study Date: ??09/28/2023 1:56pm Pat. NO: ??[id number] ?Referring ??: SOURAV PANDEY Site: ??[facility] ? Injection Molding Process Technician: Irma Scott RDMS : ??1985 ?Age: ?? [...] ? 0 lb 8 ?oz EFW by [facility] (CMC-KW-QS-NE) Head / Face / Neck Biometry: Product Development ? 5.1 ? mm CM ?3.3 ? [...] cava. Inferior vena cava. 3-vessel ? view. 1-nvnabj-ojevvcp view. Cardiac position. Cardiac size. Cardiac rhythm. [...] record, and communicating with other health manager critical care and/or care coordination. Please see note for details. Procedure Note Valeria Nagel MD - 09/28/2023 Comprehensive ----- Pat. Name: CRISTY MERCADO Study Date: 09/28/2023 1:56pm Pat. NO: [id number] Referring MD: SOURAV PANDEY Site: [facility] Injection Molding Process Technician: Irma Scott RDMS : 1985 Age: 37 ----- INDICATION ----- Advanced Maternal Age METHOD ----- Transabdominal ultrasound examination. View: Sufficient ----- [place] . Number of fetuses: 1 DATING ----- DateDetailsGest. age ABBEY LMP 4Cycle: regular cycle19 w + 0 d 02/22/2024 Prior assessment 07/19/2023 GA: 8 w +2 d18 w + 3 d 02/26/2024 U/S 4based upon AC, BPD, Femur, HC18 w + [...] 0 lb 8 oz EFW by Hadlock (OIC-NK-AO-FL) Head / Face / Neck Biometry: Product Development 5.1 mm CM 3.3 mm Nasal bone [...] Superior venacava. Inferior vena cava. 3-vessel view. 5-jwewcm-nfyoqns view.Cardiac position. Cardiac size. Cardiac rhythm. Right [...] medical record, andcommunicating with other health manager critical care and/or carecoordination. Please see note for details. [...] appeared long and closed. Sourav Pandey CNM [facility] US ORDERABLE S from Last 3 Months Care Teams Hand Straightener Relationship Specialty Start Date End Date No Ref-Primary, Physician PCP - General 09/12/23 Valeria Nagel MD [address] [place] [address] Assigned OBGYN Provider 10/30/23
--- OUTSIDE RECORDS SUMMARY | 2023-12-29 12:50 | XMS_ITS | Encounter Summary ---
Author Organization [place] Address [address] [place] [address] Care Team Providers Care Hvac Engineer Name Role Phone No Ref-Primary, Physician Primary Care Provider Reason for Visit * Reason Comments Ultrasound L2: AMA Genetic Counseling AMA Encounter Details Date Type Department Care Team (Late st Contact Info) Description 09/21/2023 PRE VISIT [facility] Maternal Medicine Center [place] [address] [facility] [address] [place] [address] Elizabeth Harman RN Ultrasound (L2: [...] on filedocumented in this encounter Care Teams Hvac Engineer Relationship Specialty Start Date End Date No Ref-Primary, Physician PCP - General 09/12/23 documented as of this encounter
--- OUTSIDE RECORDS SUMMARY | 2023-12-29 12:50 | XMS_ITS | Encounter Summary ---
Author Organization [place] Address [address] [place] [address] Care Team Providers Care Bakery Team Member Name Role Phone No Ref-Primary, Physician Primary [...] on filedocumented in this encounter Care Teams Bakery Team Member Relationship Specialty Start Date End Date No Ref-Primary, Physician PCP - General 09/12/23 documented as of this encounter
--- OUTSIDE RECORDS SUMMARY | 2023-12-29 12:50 | XMS_ITS | Encounter Summary ---
Author Organization [place] Address [facility] [place] [address] Care Team Providers Care Automotive Electrical Fitter Name Role Phone No Ref-Primary, Physician Primary Care Provider Reason for Visit * Reason Comments Ultrasound RL2- EFW 10% Encounter Details Date Type Department Care Team (Late st Contact Info) Description 10/24/2023 2:45 PM CDT Office Visit [facility] Maternal Medicine Center [place] [address] [facility] [address] [place] [address] Valeria Nagel MD [address] [place] [address] Karen Pandey, [facility] [address] [place] [address] Zelda Raman MD [address] [place] [address] related condition, antepartum (Primary Dx); [...] growth documented in this encounter Care Teams Automotive Electrical Fitter Relationship Specialty Start Date End Date No Ref-Primary, Physician PCP - General 09/12/23 documented as of this encounter
--- OUTSIDE RECORDS SUMMARY | 2023-12-29 12:50 | XMS_ITS | Encounter Summary ---
Author Organization [place] Address [address] [place] [address]. [place] [address] Care Team Providers Care Precision Grinder External Name Role Phone No Ref-Primary, Physician Primary Care Provider Reason for Referral * Diagnostic Imaging Ultrasound (Routine) - Pending Review Specialty Diagnoses / Procedures Referred By Froy t Referred To Contact Radiology. Diagnoses Encounter for ultrasound to check growth Procedures [facility] US Comprehensive Single F/U Valeria Nagel MD [address] [place] [address] Referral ID Status Reason Start Date Expiration Date V isits Requested Visits Authorized [id number] Pending Review 09/28/2023 09/27/2024 1 1 Reason for Visit * Reason Comments Genetic Counseling AMA Ultrasound L2-AMA Encounter Details Date Type Department Care Team (Late st Contact Info) Description 09/28/2023 2:45 PM CDT Office Visit [facility] Maternal Medicine [facility] [place] [address] [facility] [address] [place] [address] Sourav Pandey CNM [facility] [address] [place] [address] Valeria Nagel MD [address] [place] [address] Encounter for ultrasound to check [...] in the Maternal- Medicine Center at the [facility] today. For a detailed report of the ultrasound examination, please see the ultrasound report which can be found under the imaging tab. If you have questions regarding today's evaluation or if we can be of further service, please contact the Maternal- Medicine Center. Valeria Nagel MD Propellant Charge Zone Assembler, HEADLINER INSTALLER Maternal- Medicine [phone] (Pager) documented in this encounter Plan of [...] ? Study Date: ??10/24/2023 1:59pm Pat. NO: ??[id number] ?Referring ??MD: SOURAV PANDEY Site: ??[facility] ? Pail Bailer: Xin Zarate RDMS : ??1985 ?Age: ?? [...] 1 lb 1 ?oz EFW by ?Hadlock (VRN-DH-TB-FL) Head / Face / Neck Biometry: Natural Gas Trader ? 5.2 ? mm CM ?3.7 ? mm ANATOMY ----- The following structures appear normal: Head / Neck ? Cranium. Head size. Head shape. Lateral ventricles. Midline falx. Cavum septi pellucidi. Cerebellum. Cisterna magna. Thalami. Face ? Lips. Profile. Nose. Heart / Thorax ?4-chamber view. RVOT view. LVOT view. 5-hdinmc-cvgffpe view. ? Diaphragm. Abdomen ? Stomach. Kidneys. [...] the patient (reviewing medical records/tests), in direct dtag-cr-sknm contact with the patient during her visit with the majority spent counseling and discussing the plan of care and documenting the visit in the electronic medical record. Please see note for details. Procedure Note Zelda Raman MD - 10/24/2023 Comp Follow Up ----- Pat. Name: CRISTY MERCADO Study Date: 10/24/2023 1:59pm Pat. NO: [id number] Referring MD: SOURAV PANDEY Site: [facility] Pail Bailer: Xin Zarate RDMS : 1985 Age: 37 [...] 1 lb 1 oz EFW by Hadlock (VAW-IT-FS-FL) Head / Face / Neck Biometry: Natural Gas Trader 5.2 mm CM 3.7 mm ANATOMY ----- The following structures appear normal: Head / Neck Cranium. Head size. Head shape.Lateral ventricles. Midline falx. Cavum septi pellucidi. Cerebellum.Cisterna magna. Thalami. Face Lips. Profile. Nose. Heart / Thorax 4-chamber view. RVOT view. LVOT view.9-pnilmu-uhbmzhi view. Diaphragm. Abdomen Stomach. Kidneys. Bladder. Spine [...] see the patient (reviewing medical records/tests), in cmtubwvjwv-nf-smqx contact with the patient during her visit [...] fluid volume appeared normal. Valeria Nagel MD [facility] S documented in this encounter Visit Diagnoses Diagnosis Encounter for ultrasound to check growth- Primary Multigravida of advanced maternal age in second trimester Encounter for ultrasound to check growth documented in this encounter Care Teams Precision Grinder External Relationship Specialty Start Date End Date No Ref-Primary, Physician PCP - General 09/12/23 documented as of this encounter
--- NOTE | 2023-12-29 13:00 | CRLHL7_ITS ---
For Patients: As a result of the Cures Act, medical imaging exams and procedure reports are released immediately into your electronic medical record. You may view this report before your referring provider. If you have questions, please contact your health care provider. INDICATION: GROWTH US, BORDERLINE GROWTH RESTRICTION COMPARISON: 11/24/2023 TECHNIQUE: Real time mejia scale imaging of the fetus was performed. FINDINGS: Sonographic imaging demonstrates a single living intrauterine gestation. Fetus demonstrates a regular cardiac rate of 149 beats per minute. Fetus has a vertex position. The placenta lies right posterior. Amniotic fluid volume appears normal and there is a single deepest vertical pocket: 6.5 cm. The estimated weight is 1780gm which lies at the 21st %. On the prior OB ultrasound exam dated 11/24/2023 the estimated weight was at the 12th%. BPD 9th percentile. HC 13th percentile. AC is 50th percentile. FL is 5th percentile. The HC/AC ratio measures 1.03 range (0.96-1.16). IMPRESSION: Sonographic gestational age 31 weeks 2 days and a sonographic due date 02/28/2024. Sonographic age 6 days behind the clinical age. Estimated weight 21st percentile. Abdominal circumference 50th percentile. BPD 9th percentile. FL 5th percentile. Dictated by Zhao Qureshi MD @ 12/30/2023 1:34:14 PM (Electronically Signed)
== END 2023-12-29 12:47 | disposition home or self-care (01) ==
PROVIDERS: Visit Provider Advanced Practice Midwife
DX: O09.523 Supervision of elderly multigravida, third trimester (principal); Z3A.31 31 weeks gestation of pregnancy
CPT/HCPCS: 76816

== ENCOUNTER 2024-01-12 15:10 | Outpatient (CLI) | payer OTHER, SELFPAY ==
--- OUTSIDE RECORDS SUMMARY | 2024-01-18 07:34 | XMS_ITS | Encounter Summary ---
Author Organization [place] Address [facility] [place] [address] Care Team Providers Care Turnaround Engineer Name Role Phone No Ref-Primary, Physician Primary Care Provider Reason for Visit * Reason Comments Ultrasound RL2- EFW 10% Encounter Details Date Type Department Care Team (Late st Contact Info) Description 10/24/2023 2:45 PM CDT Office Visit [facility] Maternal Medicine Center [place] [address] [facility] [address] [place] [address] Valeria Nagel MD [address] [place] [address] Karen Pandey, [facility] [address] [place] [address] Zelda Raman MD [address] [place] [address] related condition, antepartum (Primary Dx); [...] growth documented in this encounter Care Teams Turnaround Engineer Relationship Specialty Start Date End Date No Ref-Primary, Physician PCP - General 09/12/23 documented as of this encounter
--- OUTSIDE RECORDS SUMMARY | 2024-01-18 07:34 | XMS_ITS | Encounter Summary ---
Author Organization [place] Address [address] [place] [address] Care Team Providers Care Foreclosure Home Inspector Name Role Phone No Ref-Primary, Physician Primary Care Provider Reason for Referral * Diagnostic Imaging Ultrasound (Routine) - Pending Review Specialty Diagnoses / Procedures Referred By Froy t Referred To Contact Radiology. Diagnoses Encounter for ultrasound to check growth Procedures [facility] US Comprehensive Single F/U Valeria Nagel MD [address] [facility] [address] [place] [address] Referral ID Status Reason Start Date Expiration Date V isits Requested Visits Authorized [id number] Pending Review 09/28/2023 09/27/2024 1 1 Reason for Visit * Diagnostic Imaging Ultrasound (Routine) - Pending Review Specialty Diagnoses / Procedures Referred By Froy godwin Referred To Contact Radiology. Diagnoses Encounter for ultrasound to check growth Procedures [facility] US Comprehensive Single F/U Valeria Nagel MD [address] [place] [address] Referral ID Status Reason Start Date Expiration Date V isits Requested Visits Authorized [id number] Pending Review 09/28/2023 09/27/2024 1 1 Encounter Details Date Type Department Care Team (Latest Contact Info) Description 10/24/2023 1:55 PM CDT - 10/24/2023 11:59 PM CDT Hospital Encounter [facility] Maternal Medicine [facility] [address] [facility] [address] [place] [address] Valeria Nagel MD [address] [place] [address] Zelda Raman MD [address] [place] [address] Encounter for ultrasound to check [...] Procedure Name Priority Date/Time Associated Diagnosis Comments [facility] US COMPREHENSIVE SINGLE F/U Routine 10/24/2023 2:32 PM CDT Encounter for ultrasound to check growth documented in this encounter Results * [facility] US Comprehensive Single F/U (10/24/2023 2:32 PM [...] ? Study Date: ??10/24/2023 1:59pm Pat. NO: ??[id number] ?Referring ??MD: SOURAV SIMMONS Site: ??[facility] ? Extract Operator: Xin Zarate RDMS : ??1985 ?Age: ?? [...] 1 lb 1 ?oz EFW by ?Hadlock (TUI-WS-NA-FL) Head / Face / Neck Biometry: Security Alarm Installer ? 5.2 ? mm CM ?3.7 ? mm ANATOMY ----- The following structures appear normal: Head / Neck ? Cranium. Head size. Head shape. Lateral ventricles. Midline falx. Cavum septi pellucidi. Cerebellum. Cisterna magna. Thalami. Face ? Lips. Profile. Nose. Heart / Thorax ?4-chamber view. RVOT view. LVOT view. 8-korcih-wxlfxnh view. ? Diaphragm. Abdomen ? Stomach. Kidneys. [...] the patient (reviewing medical records/tests), in direct gmck-rs-nonf contact with the patient during her visit with the majority spent counseling and discussing the plan of care and documenting the visit in the electronic medical record. Please see note for details. Procedure Note Zelda Raman MD - 10/24/2023 Comp Follow Up ----- Pat. Name: CRISTY MERCADO Study Date: 10/24/2023 1:59pm Pat. NO: [id number] Referring MD: SOURAV SIMMONS Site: [facility] Extract Operator: Xin Zarate RDMS : 1985 Age: 37 [...] 1 lb 1 oz EFW by Hadlock (NFW-EU-AF-FL) Head / Face / Neck Biometry: Security Alarm Installer 5.2 mm CM 3.7 mm ANATOMY ----- The following structures appear normal: Head / Neck Cranium. Head size. Head shape.Lateral ventricles. Midline falx. Cavum septi pellucidi. Cerebellum.Cisterna magna. Thalami. Face Lips. Profile. Nose. Heart / Thorax 4-chamber view. RVOT view. LVOT view.0-ovagkw-nyfxqkd view. Diaphragm. Abdomen Stomach. Kidneys. Bladder. Spine [...] see the patient (reviewing medical records/tests), in skoivzydsm-ej-yegu contact with the patient during her visit [...] growth documented in this encounter Care Teams Foreclosure Home Inspector Relationship Specialty Start Date End Date No Ref-Primary, Physician PCP - General 09/12/23 documented as of this encounter
--- OUTSIDE RECORDS SUMMARY | 2024-01-18 07:34 | XMS_ITS | Referral Summary ---
Author Organization [place] Address [address] [place] [address] Care Team Providers Care Rock Climbing Team Member Name Role Phone No Ref-Primary, Physician Primary Care Provider Valeria Nagel MD Unavailable [phone] Encounters Date Type Department Care Team Description 10/24/2023 Travel 10/24/2023 2:45 PM CDT Office Visit [facility] Maternal Medicine [facility] [address] [facility] [place] [address] Valeria Nagel MD Bohren, Jessica, Zelda Ryan MD related condition, antepartum (Primary Dx); Encounter for ultrasound to check growth 10/24/2023 1:55 PM CDT - 10/24/2023 11:59 PM CDT Hospital Encounter [facility] Maternal Medicine [facility] [address] [facility] [address] [place] [address] Valeria Nagel MD Burn, Martina, MD Encounter for ultrasound to check growth Discharge Disposition: Home or Self Care from Last 3 Months Social History Tobacco [...] Procedure Name Priority Date/Time Associated Diagnosis Comments M US COMPREHENSIVE SINGLE F/U Routine 10/24/2023 2:32 PM CDT Encounter for ultrasound to check growth from Last 3 Months Results * [facility] US Comprehensive Single F/U (10/24/2023 2:32 [...] ?Comp Follow Up ----- Pat. Name: JESS CRISTY ? Study Date: ??10/24/2023 1:59pm Pat. NO: ??[id number] ?Referring ??MD: SOURAV SIMMONS Site: ??[facility] ? Tax Staff Accountant: Xin Zarate RDMS : ??1985 ?Age: ?? [...] 1 lb 1 ?oz EFW by ?Hadlock (OOK-WF-DV-FL) Head / Face / Neck Biometry: At Risk Specialist ? 5.2 ? mm CM ?3.7 ? mm ANATOMY ----- The following structures appear normal: Head / Neck ? Cranium. Head size. Head shape. Lateral ventricles. Midline falx. Cavum septi pellucidi. Cerebellum. Cisterna magna. Thalami. Face ? Lips. Profile. Nose. Heart / Thorax ?4-chamber view. RVOT view. LVOT view. 3-cfraqr-coslmmc view. ? Diaphragm. Abdomen ? Stomach. Kidneys. [...] the patient (reviewing medical records/tests), in direct nwfw-fh-wuap contact with the patient during her visit with the majority spent counseling and discussing the plan of care and documenting the visit in the electronic medical record. Please see note for details. Procedure Note Zelda Raman MD - 10/24/2023 Comp Follow Up ----- Pat. Name: CRISTY MERCADO Study Date: 10/24/2023 1:59pm Pat. NO: [id number] Referring MD: SOURAV SIMMONS Site: [facility] Tax Staff Accountant: Xin Zarate RDMS : 1985 Age: 37 [...] 1 lb 1 oz EFW by Hadlock (KOS-UT-DF-FL) Head / Face / Neck Biometry: At Risk Specialist 5.2 mm CM 3.7 mm ANATOMY ----- The following structures appear normal: Head / Neck Cranium. Head size. Head shape.Lateral ventricles. Midline falx. Cavum septi pellucidi. Cerebellum.Cisterna magna. Thalami. Face Lips. Profile. Nose. Heart / Thorax 4-chamber view. RVOT view. LVOT view.1-hjbgeg-dwvvmjp view. Diaphragm. Abdomen Stomach. Kidneys. Bladder. Spine [...] see the patient (reviewing medical records/tests), in kdzyghxnvi-xe-okuu contact with the patient during her visit [...] fluid volume appeared normal. Valeria Nagel MD [facility] ORDERABLE S from Last 3 Months Care Teams Rock Climbing Team Member Relationship Specialty Start Date End Date No Ref-Primary, Physician PCP - General 09/12/23 Valeria Nagel MD [address] [place] [address] Assigned OBGYN Provider 10/30/23
--- OUTSIDE RECORDS SUMMARY | 2024-01-18 07:34 | XMS_ITS | Encounter Summary ---
Author Organization [facility] Address [address] [place] [address] Care Team Providers Care Bending Roll Hand Name Role Phone No Ref-Primary, Physician Primary [...] on filedocumented in this encounter Care Teams Bending Roll Hand Relationship Specialty Start Date End Date No Ref-Primary, Physician PCP - General 09/12/23 documented as of this encounter
--- OUTSIDE RECORDS SUMMARY | 2024-01-18 07:34 | XMS_ITS | Clinical Summary ---
Author Organization [facility] Address [address] [place] [address] Care Team Providers Care Zinc Skimmer Name Role Phone No Ref-Primary, Physician Primary Care Provider Valeria Nagel MD Unavailable [phone] Encounters Date Type Department Care Team Description 10/24/2023 2:45 PM CDT Office Visit [facility] Maternal Medicine [facility] [address] [facility] [address] [place] [address] Valeria Nagel MD Bohren, Jessica, CNM Burn, Martina, MD related condition, antepartum (Primary Dx); Encounter for ultrasound to check growth 10/24/2023 1:55 PM CDT - 10/24/2023 11:59 PM CDT Hospital Encounter [facility] Maternal Medicine [facility] [address] [facility] [address] [place] [address] Valeria Nagel MD Burn, Martina, MD Encounter for ultrasound to check growth Discharge Disposition: Home or Self Care 10/24/2023 Travel from Last 3 Months Social History [...] - 19+ 3-dose series) 08/26/2014 07/29/2014, 07/24/2014 PHQ-2 (once per calendar year) 2023 MATERNAL SCREENING DISCUSSION 07/27/2023 YEARLY PREVENTIVE VISIT 09/23/2023 09/22/2022 OBGCT (OB) 11/02/2023 COVID-19 Vaccine (3 - 2022- season) 2024 03/24/2022, 03/03/2022 INFLUENZA VACCINE (#1) 2024 , 04/19/2022, 03/05/2020, Additional history exists RSV VACCINE (1 - Risk 1-dose series) 01/08/2024 GROUP B STREP SCREENING 01/25/2024 PAP 05/25/2026 05/25/2023 DTAP/TDAP/TD IMMUNIZATION (4 - Td or Tdap) 08/28/2030 08/28/2020, 12/17/2009, 09/01/1999 HPV IMMUNIZATION Completed 05/06/2011, , 07/17/2010 MENINGITIS IMMUNIZATION Aged Out No l onger [...] Procedure Name Priority Date/Time Associated Diagnosis Comments [facility] US COMPREHENSIVE SINGLE F/U Routine 10/24/2023 2:32 PM CDT Encounter for ultrasound to check growth from Last 3 Months Results * [facility] US Comprehensive Single F/U (10/24/2023 2:32 PM [...] ? Study Date: ??10/24/2023 1:59pm Pat. NO: ??[id number] ?Referring ??MD: SOURAV SIMMONS Site: ??[facility] ? Senior Technical Analyst: Xin Zarate RDMS : ??1985 ?Age: ?? [...] 1 lb 1 ?oz EFW by ?Hadlock (OTU-BY-CL-FL) Head / Face / Neck Biometry: Financial Reporting Manager ? 5.2 ? mm CM ?3.7 ? mm ANATOMY ----- The following structures appear normal: Head / Neck ? Cranium. Head size. Head shape. Lateral ventricles. Midline falx. Cavum septi pellucidi. Cerebellum. Cisterna magna. Thalami. Face ? Lips. Profile. Nose. Heart / Thorax ?4-chamber view. RVOT view. LVOT view. 1-lnnvcs-owypozu view. ? Diaphragm. Abdomen ? Stomach. Kidneys. [...] the patient (reviewing medical records/tests), in direct nbzg-qj-ijyw contact with the patient during her visit with the majority spent counseling and discussing the plan of care and documenting the visit in the electronic medical record. Please see note for details. Procedure Note Zelda Raman MD - 10/24/2023 Comp Follow Up ----- Pat. Name: CRISTY MERCAOD Study Date: 10/24/2023 1:59pm Pat. NO: [id number] Referring MD: SOURAV SIMMONS Site: [facility] Senior Technical Analyst: Xin Zarate RDMS : 1985 Age: 37 [...] 1 lb 1 oz EFW by Hadlock (XIK-UF-SA-FL) Head / Face / Neck Biometry: Financial Reporting Manager 5.2 mm CM 3.7 mm ANATOMY ----- The following structures appear normal: Head / Neck Cranium. Head size. Head shape.Lateral ventricles. Midline falx. Cavum septi pellucidi. Cerebellum.Cisterna magna. Thalami. Face Lips. Profile. Nose. Heart / Thorax 4-chamber view. RVOT view. LVOT view.7-yexiwy-dzchamh view. Diaphragm. Abdomen Stomach. Kidneys. Bladder. Spine [...] see the patient (reviewing medical records/tests), in xedqvycbwv-kv-mixt contact with the patient during her visit [...] fluid volume appeared normal. Valeria Nagel MD [facility] ORDERABLE S from Last 3 Months Care Teams Zinc Skimmer Relationship Specialty Start Date End Date No Ref-Primary, Physician PCP - General 09/12/23 Valeria Nagel MD [address] [place] [address] Assigned OBGYN Provider 10/30/23
== END 2024-01-12 15:11 | disposition home or self-care (01) ==
PROVIDERS: Visit Provider Advanced Practice Midwife
DX: Z34.83 Encounter for supervision of other normal pregnancy, third trimester (principal)
CPT/HCPCS: 82728

== ENCOUNTER 2024-01-25 15:46 | Outpatient (CLI) | payer OTHER, SELFPAY ==
--- OUTSIDE RECORDS SUMMARY | 2024-01-25 15:48 | XMS_ITS | Encounter Summary ---
Author Organization [facility] Address [address] [place] [address] Care Team Providers Care Flag Decorator Name Role Phone No Ref-Primary, Physician Primary Care Provider Reason for Referral * Diagnostic Imaging Ultrasound (Routine) - Pending Review Specialty Diagnoses / Procedures Referred By Froy t Referred To Contact Radiology. Diagnoses Encounter for ultrasound to check growth Procedures [facility] US Comprehensive Single F/U Valeria Nagel MD [address] [facility] [address] [place] [address] Referral ID Status Reason Start Date Expiration Date V isits Requested Visits Authorized [id number] Pending Review 09/28/2023 09/27/2024 1 1 Reason for Visit * Diagnostic Imaging Ultrasound (Routine) - Pending Review Specialty Diagnoses / Procedures Referred By Froy godwin Referred To Contact Radiology. Diagnoses Encounter for ultrasound to check growth Procedures [facility] US Comprehensive Single F/U Valeria Nagel MD [address] [place] [address] Referral ID Status Reason Start Date Expiration Date V isits Requested Visits Authorized [id number] Pending Review 09/28/2023 09/27/2024 1 1 Encounter Details Date Type Department Care Team (Latest Contact Info) Description 10/24/2023 1:55 PM CDT - 10/24/2023 11:59 PM CDT Hospital Encounter [facility] Maternal Medicine [facility] [address] [place] [address] Valeria Nagel MD [address] [place] [address] Zelda Raman MD [address] [place] [address] Encounter for ultrasound to check [...] Procedure Name Priority Date/Time Associated Diagnosis Comments [facility] US COMPREHENSIVE SINGLE F/U Routine 10/24/2023 2:32 PM CDT Encounter for ultrasound to check growth documented in this encounter Results * [facility] US Comprehensive Single F/U (10/24/2023 2:32 PM [...] ? Study Date: ??10/24/2023 1:59pm Pat. NO: ??[id number] ?Referring ??MD: SOURAV SIMMONS Site: ??[facility] ? Divine Healer: Xin Zarate RDMS : ??1985 ?Age: ?? [...] 1 lb 1 ?oz EFW by ?Hadlock (DXT-VZ-ME-FL) Head / Face / Neck Biometry: Milk Handler ? 5.2 ? mm CM ?3.7 ? mm ANATOMY ----- The following structures appear normal: Head / Neck ? Cranium. Head size. Head shape. Lateral ventricles. Midline falx. Cavum septi pellucidi. Cerebellum. Cisterna magna. Thalami. Face ? Lips. Profile. Nose. Heart / Thorax ?4-chamber view. RVOT view. LVOT view. 9-whhxsw-tcauvhy view. ? Diaphragm. Abdomen ? Stomach. Kidneys. [...] the patient (reviewing medical records/tests), in direct spzp-dh-snjf contact with the patient during her visit with the majority spent counseling and discussing the plan of care and documenting the visit in the electronic medical record. Please see note for details. Procedure Note Zelda Raman MD - 10/24/2023 Comp Follow Up ----- Pat. Name: CRISTY MERCADO Study Date: 10/24/2023 1:59pm Pat. NO: [id number] Referring MD: SOURAV SIMMONS Site: [facility] Divine Healer: Xin Zarate RDMS : 1985 Age: 37 [...] 1 lb 1 oz EFW by Hadlock (YEV-EP-QF-FL) Head / Face / Neck Biometry: Milk Handler 5.2 mm CM 3.7 mm ANATOMY ----- The following structures appear normal: Head / Neck Cranium. Head size. Head shape.Lateral ventricles. Midline falx. Cavum septi pellucidi. Cerebellum.Cisterna magna. Thalami. Face Lips. Profile. Nose. Heart / Thorax 4-chamber view. RVOT view. LVOT view.5-qlkvmy-zyxjydp view. Diaphragm. Abdomen Stomach. Kidneys. Bladder. Spine [...] see the patient (reviewing medical records/tests), in afmbdeurki-av-jeuk contact with the patient during her visit [...] growth documented in this encounter Care Teams Flag Decorator Relationship Specialty Start Date End Date No Ref-Primary, Physician PCP - General 09/12/23 documented as of this encounter
--- OUTSIDE RECORDS SUMMARY | 2024-01-25 15:48 | XMS_ITS | Encounter Summary ---
Author Organization [place] Address [facility] [place] [address] Care Team Providers Care Sanitation Associate Name Role Phone No Ref-Primary, Physician Primary Care Provider Reason for Visit * Reason Comments Ultrasound RL2- EFW 10% Encounter Details Date Type Department Care Team (Late st Contact Info) Description 10/24/2023 2:45 PM CDT Office Visit [facility] Maternal Medicine [facility] [address] [facility] [address] [place] [address] Valeria Nagel MD [address] [place] [address] Karen Pandey, [facility] [address] [place] [address] Zelda Raman MD [address] [place] [address] related condition, antepartum (Primary Dx); [...] growth documented in this encounter Care Teams Sanitation Associate Relationship Specialty Start Date End Date No Ref-Primary, Physician PCP - General 09/12/23 documented as of this encounter
--- OUTSIDE RECORDS SUMMARY | 2024-01-25 15:48 | XMS_ITS | Encounter Summary ---
Author Organization [facility] Address [address] [place] [address] Care Team Providers Care Network Systems Consultant Name Role Phone No Ref-Primary, Physician Primary [...] on filedocumented in this encounter Care Teams Network Systems Consultant Relationship Specialty Start Date End Date No Ref-Primary, Physician PCP - General 09/12/23 documented as of this encounter
--- OUTSIDE RECORDS SUMMARY | 2024-01-25 15:48 | XMS_ITS | Clinical Summary ---
Author Organization [facility] Address [address] [place] [address] Care Team Providers Care Meeting/Event Planner Name Role Phone No Ref-Primary, Physician Primary Care Provider Valeria Nagel MD Unavailable [phone] Social History Tobacco Use Types Packs/Day Years [...] 09/23/2023 09/22/2022 OBGCT (OB) 11/02/2023 COVID-19 Vaccine (2023- season) 2024 03/24/2022, 03/03/2022 INFLUENZA VACCINE (#1) [...] on patient's age to complete this topic Care Teams Meeting/Event Planner Relationship Specialty Start Date End Date No Ref-Primary, Physician PCP - General 09/12/23 Valeria Nagel MD [address] [facility] [address] [place] [address] Assigned OBGYN Provider 10/30/23
--- OUTSIDE RECORDS SUMMARY | 2024-01-25 15:48 | XMS_ITS | Referral Summary ---
Author Organization [place] Address [facility] [place] [address] Care Team Providers Care Laboratory Geneticist Name Role Phone No Ref-Primary, Physician Primary Care Provider Valeria Nagel MD Unavailable [phone] Social History Tobacco Use Types Packs/Day Years [...] file Plan of Treatment Not on file Care Teams Laboratory Geneticist Relationship Specialty Start Date End Date No Ref-Primary, Physician PCP - General 09/12/23 Valeria Nagel MD [address] [facility] [address] [place] [address] Assigned OBGYN Provider 10/30/23
[2024-01-26 11:51] LABS: Strep B DNA Probe POSITIVE (Negative)
[2024-01-26 12:41] LABS: Strep B Susceptibility Needed? No
== END 2024-01-25 15:47 | disposition home or self-care (01) ==
LOC: NFLDREF 15:46
PROVIDERS: Visit Provider Midwife
DX: Z34.83 Encounter for supervision of other normal pregnancy, third trimester (principal)
CPT/HCPCS: 87081; 87653

== ENCOUNTER 2024-01-30 15:41 | Outpatient (CLI) | payer OTHER, SELFPAY ==
--- OUTSIDE RECORDS SUMMARY | 2024-02-04 17:53 | XMS_ITS | Referral Summary ---
Author Organization [place] Address [facility] [place] [address] Care Team Providers Care Grades 1 Through 6 Teacher Name Role Phone No Ref-Primary, Physician Primary Care Provider Valeria Nagel MD Unavailable [phone] Social History Tobacco Use Types Packs/Day Years [...] of Treatment Not on file Care Teams Grades 1 Through 6 Teacher Relationship Specialty Start Date End Date No Ref-Primary, Physician PCP - General 09/12/23 Valeria Nagel MD [address] [facility] [address] [place] [address] Assigned OBGYN Provider 10/30/23
--- OUTSIDE RECORDS SUMMARY | 2024-02-04 17:53 | XMS_ITS | Clinical Summary ---
Author Organization [facility] Address [address] [place] [address] Care Team Providers Care Carriage Rider Name Role Phone No Ref-Primary, Physician Primary Care Provider Valeria Nagel MD Unavailable [phone] Social History Tobacco Use Types Packs/Day [...] 09/23/2023 09/22/2022 OBGCT (OB) 11/02/2023 COVID-19 Vaccine ( season) 2024 03/24/2022, 03/03/2022 INFLUENZA VACCINE (#1) [...] age to complete this topic Care Teams Carriage Rider Relationship Specialty Start Date End Date No Ref-Primary, Physician PCP - General 09/12/23 Valeria Nagel MD [address] [facility] [address] [place] [address] Assigned OBGYN Provider 10/30/23
== END 2024-01-30 15:42 | disposition home or self-care (01) ==
LOC: NFLDREF 02-04 17:51
PROVIDERS: Visit Provider Advanced Practice Midwife
DX: O99.013 Anemia complicating pregnancy, third trimester (principal); D64.9 Anemia, unspecified; Z3A.36 36 weeks gestation of pregnancy
CPT/HCPCS: 82728

== ENCOUNTER 2024-02-03 13:30 | Outpatient (RCR) | payer OTHER, SELFPAY ==
--- NOTE | 2024-01-19 14:48 | URNOTE ---
Prior auth is not required for Patrick ([id number]) per [employer]
[2024-01-25 13:33] VITALS: BP 103/68; PULSE 73; RESP 16; TEMP 36.2; O2SAT 96
[2024-01-25] MEDS: IRON SUCROSE COMPLEX 200 MG in 0.9 % SODIUM CHLORIDE 100 ml 100 ML 440 MG IVPB (14:02)
[2024-01-25 14:47] VITALS: BP 95/62; PULSE 66; RESP 16; TEMP 36.2; O2SAT 99
[2024-01-25] MEDS: 0.9 % SODIUM CHLORIDE 250 ml IV (15:10)
[2024-01-25] MEDS: SODIUM CHLORIDE 0.9 % (FLUSH) 10 ML SYRINGE IVF (15:10)
[2024-02-03] MEDS: SODIUM CHLORIDE 0.9 % (FLUSH) 10 ML SYRINGE IVF (13:56)
[2024-02-03] MEDS: 0.9 % SODIUM CHLORIDE 250 ml IV (13:56)
[2024-02-03] MEDS: IRON SUCROSE COMPLEX 200 MG in 0.9 % SODIUM CHLORIDE 100 ml 100 ML 440 MG IVPB (13:56)
[2024-02-03 14:16] VITALS: BP 89/51; PULSE 70; RESP 16; TEMP 36.1; O2SAT 97
[2024-02-03 14:47] VITALS: BP 94/60; PULSE 67; RESP 18; O2SAT 97
== END 2024-07-23 23:59 | disposition home or self-care (01) ==
LOC: CCIC 13:30
PROVIDERS: Visit Provider Clinical Nurse Specialist
DX: O99.019 Anemia complicating pregnancy, unspecified trimester (principal); D50.9 Iron deficiency anemia, unspecified
CPT/HCPCS: 96374; J1756; J7050

== ENCOUNTER 2024-02-06 16:31 | Outpatient (CLI) | payer OTHER, SELFPAY ==
--- OUTSIDE RECORDS SUMMARY | 2024-02-06 16:33 | XMS_ITS | Clinical Summary ---
Author Organization [facility] Address [address] [place] [address] Care Team Providers Care Scissors Sharpener Name Role Phone No Ref-Primary, Physician Primary Care Provider Valeria Nagel MD Unavailable [phone] Social History Tobacco Use Types Packs/Day [...] 2024 , 04/19/2022, 03/05/2020, Additional history exists GROUP B STREP SCREENING 01/25/2024 PAP 05/25/2026 [...] patient's age to complete this topic RSV VACCINE (No Doses Required) Completed Care Teams Scissors Sharpener Relationship Specialty Start Date End Date No Ref-Primary, Physician PCP - General 09/12/23 Valeria Nagel MD [address] [facility] [address] [place] [address] Assigned OBGYN Provider 10/30/23
--- OUTSIDE RECORDS SUMMARY | 2024-02-06 16:33 | XMS_ITS | Referral Summary ---
Author Organization [facility] Address [facility] [place] [address] Care Team Providers Care Director General Name Role Phone No Ref-Primary, Physician Primary Care Provider Valeria Nagel MD Unavailable [phone] Social History Tobacco Use Types Packs/Day Years [...] of Treatment Not on file Care Teams Director General Relationship Specialty Start Date End Date No Ref-Primary, Physician PCP - General 09/12/23 Valeria Nagel MD [address] [facility] [address] [place] [address] Assigned OBGYN Provider 10/30/23
[2024-02-06 16:40] VITALS: PULSE 76; O2SAT 98
[2024-02-06 16:44] VITALS: BP 116/70; PULSE 100
[2024-02-06 16:45] VITALS: PULSE 87; O2SAT 97
[2024-02-06 16:50] VITALS: PULSE 90; O2SAT 97
[2024-02-06 16:55] VITALS: PULSE 92; O2SAT 97
[2024-02-06] MEDS: LACTATED RINGERS 1000 ML 1,000 ML IV (17:10)
[2024-02-06 17:23] LABS: Basophils Absolute Auto 0.03 K/uL (0.00-0.30); Basophils Percent Auto 0.4 % (0.0-3.0); Eosinophils Absolute Auto 0.05 K/uL (0.00-0.50); Eosinophils Percent Auto 0.7 % (0.0-7.0); Hematocrit 32.9 % (33.0-51.0); Hemoglobin* 10.6 gm/dL (12.0-16.0); Immature Granulocytes Abs Auto 0.02 K/uL (0.00-0.30); Immature Granulocytes Pct Auto 0.3 %; Lymphocytes Absolute Auto 1.71 K/uL (0.90-2.90); Mean Corpuscular HGB Conc 32 gm/dL (32-36); Mean Corpuscular Hemoglobin 29 pg (26-34); Mean Corpuscular Volume 90 fL (80-100); Monocytes Percent Auto 5.5 % (0.0-11.0); Neutrophils Percent Auto 70.1 % (42.0-72.0); Platelet Count* 236 K/uL (140-440); RDW Coefficient of Variation % 14.3 % (11.5-15.5); Red Blood Count 3.67 m/uL (4.00-5.20); White Blood Count* 7.42 K/uL (4.50-11.00)
[2024-02-06 17:27] LABS: Slide Review Reflex No
[2024-02-06 18:14] VITALS: PULSE 66; O2SAT 98
--- NOTE | 2024-02-06 18:46 | PC.OBNST ---
NST Note NST Note Start: 02/06/24 16:35 Freq: ONCE Status: Active Protocol: Document 02/06/24 18:44 [facility] (Rec: 02/06/24 18:46 [facility] Desktop) NST Note 2 Para (# of births) 1 EDC 02/22/24 Gestational Age In Weeks & Days 37 Weeks & 5 Days Patient Presented with Complaint(s) of Other Other Complaints SOB, racing HR Reactive Yes Appropriate for Gestational Age Yes RN Tim Starkey RN Date 02/06/24 Reactive Yes Appropriate for Gestational Age Yes BRIANNE Anderson RN Date 02/06/24 OB NST charge Yes Complete NST Note via Write Note Yes The provider's electronic signature indicates the NST is reactive/appropriate for gestational age. *Note to provider: If an addendum is required, open the patient's chart and click on the note under the Nurse/Allied Health tab.
== END 2024-02-06 18:44 | disposition home or self-care (01) ==
LOC: OB OUT 16:31 → OB 16:32
PROVIDERS: Visit Provider Advanced Practice Midwife
DX: O99.413 Diseases of the circulatory system complicating pregnancy, third trimester (principal); Z3A.37 37 weeks gestation of pregnancy
CPT/HCPCS: 36415; 59025; 85025; G0463; J7120

== ENCOUNTER 2024-02-25 01:07 | Inpatient (IN) | payer OTHER, SELFPAY ==
[2024-02-25] VITALS (32 sets, daily range): BP systolic 91–125; BP diastolic 45–75; PULSE 46–80; RESP 12–18; TEMP 36.4–36.9; O2SAT 94–100; BMI 36.2
--- OUTSIDE RECORDS SUMMARY | 2024-02-25 00:57 | XMS_ITS | Clinical Summary ---
Author Organization [facility] Address [address] [place] [address] Care Team Providers Care Railroad Crane Operator Name Role Phone No Ref-Primary, Physician Primary Care Provider Valeria Nagel MD Unavailable [phone] Social History Tobacco Use Types Packs/Day [...] VACCINE (No Doses Required) Completed Care Teams Railroad Crane Operator Relationship Specialty Start Date End Date No Ref-Primary, Physician PCP - General 09/12/23 Valeria Nagel MD [address] [facility] [address] [place] [address] Assigned OBGYN Provider 10/30/23
--- OUTSIDE RECORDS SUMMARY | 2024-02-25 00:58 | XMS_ITS | Referral Summary ---
Author Organization [place] Address [facility] [place] [address] Care Team Providers Care Gasket Supervisor Name Role Phone No Ref-Primary, Physician Primary Care Provider Valeria Nagel MD Unavailable [phone] Social History Tobacco Use Types Packs/Day [...] of Treatment Not on file Care Teams Gasket Supervisor Relationship Specialty Start Date End Date No Ref-Primary, Physician PCP - General 09/12/23 Valeria Nagel MD [address] [facility] [address] [place] [address] Assigned OBGYN Provider 10/30/23
--- NOTE | 2024-02-25 02:10 | P.LDBA_ITS ---
Subjective History of Present Illness Date Seen: 02/25/24 Narrative: Cristy is a 38 yo at 40 3/7 weeks gestation being admitted to Labor and Delivery for spontaneous onset of labor. Patient report she went home yesterday after her appointment and took Vistaril for rest. She was able to sleep for about 3 hours then awoke to irregular contractions. They intensified in the evening but were still irregular, about every 5 minutes, but knowing she was GBS+ she called and decided to come in. On her ride around 1230, she started to have regular painful contractions that were increasing in intensity and frequency. She SROM'd shortly after arrival. She is supported in labor by her , Kimo, and is coping well with labor. RN has attempted IV for GBS prophylaxis but it was accidently dislodged when patient moved. Her full history and physical was dictated by COREY Love on 02/25/2024. Please see this for details. Specific Issues/Plans Kimo H&P completed by COREY Love on 01/30/2024 Post-dates IOL scheduled tentatively for 02/28 at 7 am - AMA Genetic screening: Mat21 negative Level 2 US: ordered w/ [facility] ASA recommended (AMA and BMI) - Hx of HSV type 1 takes Valtrex PRN Suppressive therapy ordered at 34 weeks.-Confirmed patient is taking. - Hx of PP thyroiditis seeing coal drier operator- orig dx Graves but since they have said thyroiditis, f/u labs with them 08/14 TSH at [facility]: 1.380 symptomatic (cold all the time), endocrine aware: November Per Endocrine: was repeated at [facility] in November - Hx SVT no meds - Hx Migraine with aura - Hx Depression with anxiety situational no current issues - Anemia, Hgb 10.3 at 27 weeks Recommended EOD iron supplement 10.5 12/15/2023 IV Venofer 01/25/24; 01/30/24: 9.7, ferritin normal - EFW 10%ile at [facility] (09/28/2023), MFM saying FGR when less than 10%ile, RESOLVED Repeat growth with MFM EFW 16%, they recommend growth in 4 weeks, can be at [facility]. 11/23: EFW 12%ile. Stable, no further BPP's but will plan repeat Growth US at 32 weeks. 8/22: EFW 21%ile. - GBS+, ok with antibiotics TDAP: 12/15/2023 PHQ-9/BLAZE-7: 12/29/2023 RSV offered patient declined. OB - Problem Based A/P Additional Plan (1) Pain during labor: Status: Acute Plan ASSESSMENT:? 38 yo at 40.3 weeks gestation? complicated by:?AMA, HSV Type 1, PP thyroiditis, Hx of SVT, Hx Migraine with aura, Hx of anxiety/depression, Anemia Labor type: Spontaneous, Active labor? Category 1 FHR pattern.?? Labor complicated by: GBS positive? ? PLAN:? 1. Routine intrapartum cares as ordered. Continue with expectant management? 2. Monitoring per policy, intermittent?after reactive NST 3. Planning unmedicated . Desires water . Consent signed. Hep C negative. Candidate for analgesia of choice, if desired.?? 4. Patient encouraged to reposition and ambulate to promote physiologic labor and .? 5. Attempted IV, but accidently pulled out after placement. Discussed GBS prophylaxis for GBS positive status and patient will likely not receive adequate treatment due to current labor status and patient feeling pressure with urge to push. Offered another IV attempt, patient declines and is aware that she will be recommended to stay 36+ hours after delivery. 6. Anticipate ? Delivery/Labor/Induction Plan Plan: expectant management OB Result Labs GBS Status: positive OB Exam Physical Exam Vital signs: Pulse Resp BP 65 16 125/71 02/25/24 02:00 02/25/24 01:30 02/25/24 02:00 Narrative: Vitals Reviewed Constitutional:? Alert and oriented x3 HEENT:? Normocephalic, atraumatic Neck:? Supple Lungs:? Clear to auscultation bilaterally Heart:? Regular rate and rhythm, no murmur, rub or gallop Abdomen:? Soft, nontender, and gravid. Vertex by Tl's, confirmed with cervical exam. Extremities:? No edema or erythema Cervix: 8 cm/90%/0 station/vertex, forebag palpated NST: 135 bpm/moderate variability/15x15 accelerations/no decelerations/contractions every 2-4 minutes Detailed Labor and Delivery Exam Patient Gravid: Yes
[2024-02-25] MEDS: IBUPROFEN 600 MG TABLET PO ×2 (02:15→15:45)
--- NOTE | 2024-02-25 02:23 | W.PM.VAGDE_ITS ---
OB Procedure Vag Delivery Mother Details Mother Details: The patient is a 38 year-old, 2, now Para 2, admitted on 02/25/24 at 40.3 weeks gestation. : 2 Para: 2 Weeks Gestation: 40.3 Admission Date: 02/25/24 Additional Details Amniotic Membrane Status: SROM Amniotic Membrane Rupture Date: 02/25/24 Amniotic Membrane Rupture Time: 01:16 Amniotic Membrane Fluid Description: Clear Analgesia/Anesthesia Type: None Waterbirth: Yes Pitcoin: No (Expectant management of Pitocin, only desired if necessary) Intrapartal Events: Precipitous Labor <3 Hrs Labor Onset: 00:30 Complete: 01:40 Pushin:40 Heart: heart tones during second stage were intermittently auscultated with continuous monitoring during pushing due to maternal position and delivery imminent. Delivery Details Delivery Date: 02/25/24 Delivery Time: 01:45 Route of delivery: Infant Gender: Female Viability: Alive; Heart Rate Present Position at Delivery: OA Delivery Details: Patient was admitted for spontaneous onset of labor and progressed precipiti ously. SROM occurred at 0116 with clear fluid, with forebag SROM just prior to delivery noted in the tub. Patient was assumed complete with pushing at 0140. of a viable female at 0145, kneeling in the tub. Vertex delivered OA. No nuchal cord or shoulder. Body delivered easily and without incident. passed between mothers legs, lifted above water, and handed to Cristy with a vigorous cry. Baby was held to her lower abdomen. Cord was short so baby was lowered onto moms legs and tub water was removed before mom was assisted to seat on the edge of the tub. Cord was clamped and cut at > 5 minutes. APGARS were 8 at one minute and 9 at five minutes respectively. Mouth was bulb suctioned. Intact placenta with a 3 vessel cord delivered spontaneously at 0158. Fundus firm. Intact perineum. QBL 25 cc. Mother and baby stable; mother plans to breastfeed. Infant weight 3520 g. GBS was not treated due to precipitous labor. 1 Minute Interval Total Score: 8 5 Minute Interval Total Score: 9 Additional Details Shoulder Dystocia: No Placenta Delivery Time: 01:58 Placental Delivery Description: Spontaneous Procedure Done: Global Blood Loss: 25 Laceration: None Blood Loss Measurement Type: QBL Bakri Used: No Sponge/Need Count Correct: Yes Cord Vessel Description: 3 Vessels Event Summary Status: Mother and infant were stable after delivery. Disposition: floor
--- NOTE | 2024-02-25 08:40 | PM.OBPNVD1 ---
OB - PN:Subj Subjective Date Seen: 02/25/24 Interval history: Cristy confirms with me today that she desires sterilization. She has previously seen Dr. Hdez for discussion of bilateral salpingectomy. We reviewed and initialed her consent form. I reviewed with her the likely need for postoperative narcotics and lifting restrictions. She expressed understanding. OB - PN: Obj Exam Physical Exam: Vital signs: Temp Pulse Resp BP 97.5 F L 61 16 107/67 02/25/24 02:00 02/25/24 03:46 02/25/24 03:45 02/25/24 03:46 Narrative: Physical exam: Vitals as noted above. General: No acute distress Psych: Alert and oriented x 3, full affect Abdomen: Soft, nontender, fundus at umbilicus
[2024-02-25] MEDS: LACTATED RINGERS 1000 ML 1,000 ML 100 ML IV (09:45)
[2024-02-25] MEDS: BUPIVACAINE 0.25% 30 ML INJECTION (11:00)
--- NOTE | 2024-02-25 11:09 | P.GYNPRC_ITS ---
Procedure Note Date of procedure: 02/25/24 Will [facility] bill your pro fee for this procedure?: Yes Pre-op diagnosis: Status post normal spontaneous vaginal delivery Multiparity Undesired fertility Post-op diagnosis: Same Procedure: bilateral salpingectomy via mini-laparotomy Anesthesia: GETA Complications: None Surgeon: Penny Mijares MD Estimated blood loss (mL): 5 IV fluids (mL): 300 Pathology: specimen obtained, sent to pathology (Bilateral fallopian tubes) Condition: stable Disposition: floor Findings: Bilateral ovaries, uterine fundus and fallopian tubes were normal in appearance. There was a 1 cm simple paratubal cyst on the left fimbria, which was removed along with the tube. Procedure Description: Patient was taken to the operating room with IV running. General anesthesia was established. She was prepped and draped in the usual sterile fashion in the dorsal supine position. She received 2 g of Ancef in preoperative prophylaxis. The infraumbilical area was infiltrated with a small amount of Marcaine. An infraumbilical incision was made with a scalpel. This incision was carried down to the underlying layer of fascia with hemostat. The fascia was grasped with Kyra clamps and entered sharply with Park scissors. The peritoneum was tented up with hemostats and entered sharply. The smallest Daren retractor was inserted and tightened down. Patient was airplaned to her left side. The right tube was identified and carried out to its fimbriated end. Beginning with the fimbriated edge, the mesosalpinx was cauterized and transected with the LigaSure exact device. This dissection was carried laterally to medially. The fallopian tube was divided near the cornua and sent to pathology. Hemostasis was confirmed. Patient was then airplaned to her right side. The left tube was identified and carried out to its fimbriated end. The left tube was identified and carried out to its fimbriated end. Beginning with the fimbriated edge, the mesosalpinx was cauterized and transected with the LigaSure exact device. This dissection was carried laterally to medially. The fallopian tube was divided near the cornua and sent to pathology. Hemostasis was confirmed. Patient was returned to neutral position. The retractor was removed. The peritoneum was closed with a running stitch of 2-0 Vicryl. The fascial edges were reapproximated with 0-Vicryl in a running fashion. Skin was closed with a subcuticular stitch of 4-0 Monocryl. Surgical glue was applied over the incision. Patient tolerated procedure well and was taken to recovery area in stable condition.
--- NOTE | 2024-02-25 11:13 | P.ANES_ITS ---
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
--- NOTE | 2024-02-25 12:53 | PM.OBPNVD1 ---
OB - PN:Subj Subjective Date Seen: 02/25/24 Interval history: Dr Elias Muniz confirms with me today that she desires sterilization. She has previously seen Dr. Hdez for discussion of bilateral salpingectomy. We reviewed and initialed her consent form. I reviewed with her the likely need for postoperative narcotics and lifting restrictions. She expressed understanding. Narrative: ?The patient feels well.? The pain is increasing status post tubal ligation. She would like to try an oxycodone.? She has no new complaints.? Urinary output is adequate and she is voiding without difficulty.? Has a good appetite, is tolerating a general diet, is passing flatus, and has not had a bowel movement.? Has scant amount of rubra lochia.? She is ambulating well prior to her surgery. She was initially, but plans to formula feed from here on out and reports it is going well.? OB - PN: Obj Exam Physical Exam: Vital signs: Temp Pulse Resp BP Pulse Ox O2 Del Method 98.3 F 53 L 14 95/58 L 96 Room Air 02/25/24 11:35 02/25/24 11:35 02/25/24 11:35 02/25/24 11:35 02/25/24 11:35 02/25/24 11:35 Narrative: GENERAL APPEARANCE:? normal affect, alert, no distress MOOD:? appropriate EXTREMITIES:? 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
[2024-02-25] MEDS: ACETAMINOPHEN 500 MG TABLET 1000 MG PO ×2 (13:19→21:07)
[2024-02-25] MEDS: OXYCODONE 5 MG TABLET PO ×2 (13:19→18:23)
[2024-02-25] MEDS: DOCUSATE SODIUM 100 MG CAPSULE PO (13:20)
[2024-02-25] MEDS: OXYTOCIN 10 UNIT/ML INJ IM (16:46)
[2024-02-26] MEDS: IBUPROFEN 600 MG TABLET PO ×2 (01:01→10:19)
[2024-02-26 02:00] VITALS: BP 94/59; PULSE 53; RESP 16; TEMP 36.6; O2SAT 98
[2024-02-26] MEDS: ACETAMINOPHEN 500 MG TABLET 1000 MG PO (04:32)
[2024-02-26] MEDS: OXYCODONE 5 MG TABLET PO (04:32)
[2024-02-26 06:51] LABS: Hemoglobin* 8.8 gm/dL (12.0-16.0)
--- NOTE | 2024-02-26 09:29 | P.DS_ITS ---
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 normal affect, alert, no distress MOOD:? appropriate CHEST:? clear to auscultation HEART:? regular rate and rhythm ABDOMEN:? soft, non-tender the uterine fundus is At Umbilicus, Midline and is appropriate for the stage of recovery. EXTREMITIES:? normal and minimal edema Const: Vital Signs, click to edit/add: Vital Signs - 24 hr 02/25/24 11:08 02/25/24 11:13 02/25/24 11:17 Temperature 98.4 F Pulse Rate 49 L 49 L 49 L Pulse Rate [Pulse Oximeter] Respiratory Rate 16 17 12 Blood Pressure 98/45 L 103/75 98/59 L Blood Pressure [Ri ght Arm] Pulse Oximetry 96 97 94 Oxygen Delivery Me thod Room Air Room Air Room Air 02/25/24 11:22 02/25/24 11:27 02/25/24 11:30 Temperature 97.9 F 97.9 F Pulse Rate 53 L 53 L 53 L Pulse Rate [Pulse Oximeter] Respiratory Rate 14 14 14 Blood Pressure 99/59 L 100/58 L 95/57 L Blood Pressure [Ri ght Arm] Pulse Oximetry 95 95 96 Oxygen Delivery Me thod Room Air Room Air Room Air 02/25/24 11:35 02/25/24 11:41 02/25/24 11:56 Temperature 98.3 F 98.2 F Pulse Rate 53 L Pulse Rate [Pulse Oximeter] 49 L 48 L Respiratory Rate 14 18 18 Blood Pressure 95/58 L Blood Pressure [Ri ght Arm] 103/62 95/61 Pulse Oximetry 96 98 99 Oxygen Delivery Me thod Room Air 02/25/24 12:10 02/25/24 12:25 02/25/24 15:41 Temperature 97.5 F L Pulse Rate Pulse Rate [Pulse Oximeter] 46 L 54 L 80 Respiratory Rate 18 18 16 Blood Pressure Blood Pressure [Ri ght Arm] 104/67 105/70 91/63 Pulse Oximetry 98 99 95 Oxygen Delivery Me thod Room Air 02/25/24 16:59 02/25/24 18:17 02/25/24 21:11 Temperature 97.8 F Pulse Rate Pulse Rate [Pulse Oximeter] 75 65 Respiratory Rate 18 16 16 Blood Pressure Blood Pressure [Ri ght Arm] 115/73 113/72 102/65 Pulse Oximetry 98 99 99 Oxygen Delivery Me thod Room Air Room Air 02/26/24 02:00 Temperature 97.9 F Pulse Rate Pulse Rate [Pulse Oximeter] 53 L Respiratory Rate 16 Blood Pressure Blood Pressure [Ri ght Arm] 94/59 L Pulse Oximetry 98 Oxygen Delivery Me thod Room Air OB - DS: Summary Hospital Course Hospital Course: Cristy is a 38 y.o. G 2 P 1999 who was admitted to L & D for spontaneous labor.? She had a NVD that was uncomplicated, but baby did need some help transitioning. The patient feels well.? The pain is well controlled with current medications.? She has no new complaints.? She is bottle feeding and reports things are going well. the patient has done well.? Vitals have been stable.? She has remained afebrile.? Has a good appetite, is tolerating a general diet.? She is voiding without difficulty.? She is passing gas and has not had a bowel movement.? She is ambulating and denies any dizziness.? Has scant amount of rubra lochia. She did have abnormal clots pass yesterday afternoon post her tubal ligation, but it has resolved after Pit IM was given and fundus remains firm since. She had a tubal ligation yesterday for prevention.? ?? Problems: abnormal bleeding resolved, uncomplicated tubal ligation? ?? plan:? Discharge home with baby.? Follow up in 2 weeks and 6 weeks.? Bottlefeeding, may see if needed? Hgb 8.8. Iron supplement to be continued orally every other day? Pt to watch for thyroid dysfunction and notify us of any concerns, but otherwise will plan on checking a TSH at her 6 week appt. Call for signs/symptoms of preeclampsia? For pain control of perineum, breast and pelvic pain, take 600 mg Ibuprofen every 6 hours as needed by mouth or 1000 mg acetaminophen (Tylenol) every 6 hours by mouth as needed. You can alternate these so you are taking something every 3 hours as needed. A heating pad can also be used for your abdomen or breasts.?Take docusate sodium (Colace) 100mg by mouth up to twice daily as needed to keep stool soft. You may reduce use as desired as things return to normal. Peripartum Data Infant delivery method: Vaginal Laceration description: None Episiotomy description: None Procedures: Procedures Operation Date: 02/25/24 10:15 Actual Procedure Side Surgeon p Post Tubal Ligation Penny Mijares MD Procedures: tubal ligation/salpingectomy complications: none [place] Gender: Female Discharge Plan: Home Status at Discharge Overall status at discharge: patient is progressing back to baseline Time Spent with Patient Time attestation: Total time spent providing and/or coordinating discharge services: Time spent: Less than 30 minutes Discharge Plan Discharge Disposition: Home, Self-Care Date of Admission: 02/25/24 01:07 Attending Provider on Discharge: Margy Rock Primary Care Provider: Provider,Not a Local Condition: Stable Anticipated Discharge Date/Time: 02/26/24 12:00 Discharge Medications: New oxycodone 5 mg Tablet 5 mg PO Q4H PRN (Reason: Pain) Qty: 15 0RF Continued Classic 28 mg iron- 800 mcg tablet 1 tab PO QDAY calcium carbonate-vitamin D3 250 mg-3.125 mcg (125 unit) tablet 1 tab PO QDAY docusate sodium [Colace] 100 mg capsule 100 mg PO QDAY Discontinued omeprazole 20 mg capsule,delayed release(DR/EC) 20 mg PO QDAY Qty: 90 3RF aspirin [Adult Low Dose Aspirin] 81 mg tablet,delayed release (DR/EC) 81 mg PO QDAY Unisom (doxylamine) 25 mg tablet 25 mg PO QHS hydroxyzine pamoate [Vistaril] 25 mg capsule 25 mg PO Q6H PRN (Reason: anxiety) Qty: 30 0RF valacyclovir [Valtrex] 500 mg tablet 500 mg PO DAILY Patient Comments: daily Discharge Orders: Discharge Order (Routine); Ordered 02/26/24 Ordered By: Margy Rock Patient Education: OB Care, OB Vaginal/Bottle Feeding Additional Instructions: Discharge instructions were reviewed with the patient including signs and symptoms of infection and home going medications Nothing vaginally for 6 weeks: no tampons or intercourse Do not drive while taking narcotic pain medication(s) Off Work or School for 6 weeks Symptoms to report to doctor: * Bleeding that saturates more than one pad per hour * Passing clots larger than the size of a golf ball * Pain not relieved by prescribed medication * Fever above 100.4 degrees Fahrenheit * A foul vaginal odor * Difficulty in emotions, mood, and functions * Thoughts of hurting yourself and/or * Painful, reddened area in your breast * Any drainage, redness, or tenderness in your IV/epidural site * Severe headache that doesn't improve after taking medications * Changes in vision, including temporary loss of vision, blurred vision, and/or light sensitivity * Upper abdominal pain (usually under ribs on the right side) * Decrease in urination or painful, frequent urinating * Chest pain * Shortness of breath * Tenderness or pain with redness and/swelling in the calf(s) of your leg 2-week visit: discuss infant feeding concerns, review control options and screen for anxiety/depression. 6-week visit for an annual exam. For pain control of perineum, breast and pelvic pain, take 600 mg Ibuprofen every 6 hours as needed by mouth or 1000 mg acetaminophen (Tylenol) every 6 hours by mouth as needed. You can alternate these so you are taking something every 3 hours as needed. A heating pad can also be used for your abdomen or breasts. You can use docusate sodium (Colace) 100 mg up to twice daily for stool softening. You can decrease the dose or stop taking when daily soft stools return as desired. ? Activity Level: Activity as Tolerated and No strenuous activity Discharge Diet: Regular Follow Up Appointments: [facility] [Provider Group] Forms: MyHealth Info Instructions
[2024-02-26] MEDS: DOCUSATE SODIUM 100 MG CAPSULE PO (10:19)
[2024-02-26 10:25] VITALS: BP 116/76; PULSE 67; RESP 14; TEMP 36.8; O2SAT 98
[2024-02-26] MEDS: CALCIUM CARBONATE 500 MG CHEW PO (11:50)
[2024-02-26 21:37] LABS: Rapid Plasma Reagin (RPR) Non Reactive (Non Reactive)
--- OUTSIDE RECORDS SUMMARY | 2024-02-27 10:44 | XMS_ITS | Clinical Summary ---
Author Organization [place] Address [address] [place] [address] Care Team Providers Care Car Sweeper Name Role Phone No Ref-Primary, Physician Primary Care Provider Valeria Nagel MD Unavailable [phone] Social History Tobacco Use Types Packs/Day [...] VACCINE (No Doses Required) Completed Care Teams Car Sweeper Relationship Specialty Start Date End Date No Ref-Primary, Physician PCP - General 09/12/23 Valeria Nagel MD [address] [facility] [address] [place] [address] Assigned OBGYN Provider 10/30/23
--- OUTSIDE RECORDS SUMMARY | 2024-02-27 10:44 | XMS_ITS | Referral Summary ---
Author Organization [place] Address [facility] [place] [address] Care Team Providers Care Overlocker Name Role Phone No Ref-Primary, Physician Primary Care Provider Valeria Nagel MD Unavailable [phone] Social History Tobacco Use Types Packs/Day Years [...] of Treatment Not on file Care Teams Overlocker Relationship Specialty Start Date End Date No Ref-Primary, Physician PCP - General 09/12/23 Valeria Nagel MD [address] [facility] [address] [place] [address] Assigned OBGYN Provider 10/30/23
== END 2024-02-26 14:03 | disposition home or self-care (01) | DRG 797 ==
LOC: OB OUT 01:07 → OB 09:19
PROVIDERS: Midwife; Obstetrics & Gynecology; Admitting Provider Advanced Practice Midwife; Visit Provider Advanced Practice Midwife
PROC: (CPT 58605; principal; 2024-02-25 10:00)
DX: O99.824 Streptococcus B carrier state complicating childbirth (principal); O98.32 Other infections with a predominantly sexual mode of transmission complicating childbirth; Z37.0 Single live birth; Z3A.40 40 weeks gestation of pregnancy; A60.00 Herpesviral infection of urogenital system, unspecified; O99.344 Other mental disorders complicating childbirth; F41.8 Other specified anxiety disorders; Z30.2 Encounter for sterilization; O99.02 Anemia complicating childbirth; D64.9 Anemia, unspecified; G43.109 Migraine with aura, not intractable, without status migrainosus; Z86.39 Personal history of other endocrine, nutritional and metabolic disease; O62.3 Precipitate labor; Z86.79 Personal history of other diseases of the circulatory system
CPT/HCPCS: 00840; 36415; 85018; 86592; 88302; 99140; G0463; A9270; J0330; J0665; J1100; J1630; J1885; J2405; J2590; J2704; J2710; J3010; J7120

== ENCOUNTER 2024-04-12 13:35 | Outpatient (CLI) | payer OTHER, SELFPAY ==
--- OUTSIDE RECORDS SUMMARY | 2024-04-12 13:38 | XMS_ITS | Referral Summary ---
Author Organization [place] Address [address] [place] [address] Care Team Providers Care Metal Buggy Operator Name Role Phone No Ref-Primary, Physician Primary Care Provider Valeria Nagel MD Unavailable [phone] Social History Tobacco Use Types Packs/Day Years Used Date Smoking Tobacco: Never Assessed Adolescent Education Answer Date Record ed Getting School Help Needed Not on file 09/21 Estimated Date of Delivery Comme nts Yes 02/22/2024 Based on last me nstrual period of 05/18/2023 Sex and Gender Information Value Date Recorded Sex Assigned at Not on file Legal Sex Female 11:34 AM CDT Gender Identity Not on file Sexual Orientation Not on file Plan of Treatment Not on file Insurance [employer]ICE [employer] Care Teams Metal Buggy Operator Relationship Specialty Start Date End Date No Ref-Primary, Physician PCP - General 09/12/23 Valeria Nagel MD [address] [address] Assigned OBGYN Provider 10/30/23
--- OUTSIDE RECORDS SUMMARY | 2024-04-12 13:38 | XMS_ITS | Clinical Summary ---
Author Organization [place] Address [address] [place] [address] Care Team Providers Care Wheat And Oats Flake Miller Name Role Phone No Ref-Primary, Physician Primary Care Provider Valeria Nagel MD Unavailable [phone] Social History Tobacco Use Types Packs/Day [...] topic RSV VACCINE (No Doses Required) Completed Insurance MEDICA CHOICE MED[employer] CHOICE Care Teams Wheat And Oats Flake Miller Relationship Specialty Start Date End Date No Ref-Primary, Physician PCP - General 09/12/23 Valeria Nagel MD [address] [address] Assigned OBGYN Provider 10/30/23
== END 2024-04-12 13:36 | disposition home or self-care (01) ==
LOC: NFLDREF 13:36
PROVIDERS: Visit Provider Advanced Practice Midwife
DX: Z39.2 Encounter for routine postpartum follow-up (principal); Z86.39 Personal history of other endocrine, nutritional and metabolic disease
CPT/HCPCS: 84443